=== PATIENT | male | born 1935 | race Caucasian/White ===

== ENCOUNTER 2017-09-24 12:31 | Inpatient (IN) | payer MEDICARE, OTHER ==
[2017-09-24] MEDS ORDERED: Albuterol 0.083% 2.5 MG/3 ML Neb Soln NEB PRN (12:47)
[2017-09-24] MEDS ORDERED: Furosemide 40 MG/4 ML VIAL IVPUSH ONE (13:45)
[2017-09-24] MEDS ORDERED: Potassium Chloride 20 MEQ Tab.ER PO ONE (13:45)
[2017-09-24] MEDS ORDERED: Levofloxacin/Dextrose 5%-Water 100 ML IV SCH (14:00)
[2017-09-24] MEDS ORDERED: Acetaminophen 500 MG Tab PO PRN (14:05)
[2017-09-24] MEDS: Sodium Chloride 0.9% 100 ML IV SCH (14:10)
[2017-09-24] MEDS: cefTRIAXone 1 GM Vial IVPUSH SCH (14:20)
[2017-09-24] MEDS ORDERED: Levofloxacin/Dextrose 5%-Water 50 ML IV SCH (15:00)
[2017-09-24] MEDS ORDERED: Warfarin 2.5 MG Tab PO SCH (18:00)
[2017-09-24] MEDS: Fluticasone Propionate Nasal Spray 16 GM Bottle NASBOTH SCH (21:04)
[2017-09-24] MEDS: ClonazePAM 0.5 MG Tab PO SCH (21:04)
[2017-09-24] MEDS: Levothyroxine 50 MCG Tab PO SCH (21:06)
[2017-09-25] MEDS: Losartan 25 MG Tab PO SCH (08:56)
[2017-09-25] MEDS: Metoprolol Succinate 50 MG Tab.ER PO SCH (08:56)
[2017-09-25] MEDS: Fluticasone Propionate Nasal Spray 16 GM Bottle NASBOTH SCH ×2 (08:57→21:04)
[2017-09-25] MEDS ORDERED: Furosemide 40 MG/4 ML VIAL IVPUSH ONE (11:05)
[2017-09-25] MEDS: Azithromycin 500 MG in Sodium Chloride 0.9% 250 ML IV SCH (11:44)
[2017-09-25] MEDS: Pantoprazole 40 MG Vial IVPUSH SCH (11:46)
[2017-09-25] MEDS: predniSONE 10 MG Tab PO SCH (13:01)
--- NOTE | 2017-09-25 13:15 | PN ---
09/25/2017 PATIENT NAME: KATHRINE BELL CHIEF COMPLAINT: Does feel overall better. White count is decreasing. No sputum production. BRIEF HISTORY: This patient was admitted by Stacy Augustin, Nurse Practitioner, yesterday due to bilateral lower lobe pneumonia. The patient failed outpatient treatment. He was seen and evaluated yesterday. Complains of "feeling miserable". He had woke up early in the morning around 2:30 with body aches, chills, headaches, and shortness of breath. The patient does report pneumonia approximately four or five years ago. The patient also reports history of pleural effusions with status post thoracentesis at one time. He was admitted for IV antibiotics for pneumonia. PHYSICAL EXAM: VITAL SIGNS: Blood pressure 134/87, heart rate 80, irregular, temperature 97.8, respiratory rate 18, O2 sats 95%, this is room air. The patient's weight is 194.5 pounds. GENERAL: The patient is alert and oriented. LUNGS: He does have some mild rhonchi in lower bases, however diaphragmatic excursion normal. CV: Irregular rhythm, however, rate controlled at 80. No S3. PMI midclavicular line, 2nd or 3rd intercostal space. GI/: Nontender. Good bowel tones. EXTREMITIES: Lower extremity slightly erythematous; 2 to 3+ edema of the right great toe. Good distal pulses. LABS: Yesterday, white count 25,000; this morning, 11.6, neutrophilia 80%. INR 2.4. Sodium and potassium normal. Creatinine 1.48, BUN 22, calcium 8.9, hemoglobin 16.2, hematocrit 49.1. BNP in [facility] 170, slightly elevated. IMPRESSION/PLAN: 1. Bilateral lower lobe pneumonia, likely streptococcal. Discontinue levofloxacin. Add azithromycin. Continue with ceftriaxone. We will see if we can get sputum culture, assess pneumococcal status. Incentive spirometer. Good pulmonary toileting. DuoNebs. 2. Inflammatory gout. We will add tapered dose of prednisone likely to benefit for pneumonia, however, was given loop diuretic yesterday. 3. Atrial fibrillation, chronic. CHADVAS2 score high on anticoagulation. INR therapeutic. Rate control with beta-sisi. 4. Heart failure, minimally clinical presentation at this time. BNP slightly elevated at 170, although does have gouty arthropathy, likely could benefit from 20 mg of Lasix today. Chest x-ray, independently read, does have some vascular congestion, slightly fluid overload picture. Daily weights. ARB ongoing. Mean arterial pressure adequate. The patient is warm, pink, and perfusing. Adequate urinary output. 5. Chronic kidney disease. BUN 22, creatinine 1.48, adequate output, likely not a candidate for NSAIDs for gout. We will give low-dose tapering of prednisone. Eventually, likely will benefit from renal dose allopurinol at some point after acute flare up. 6. GI stress prophylaxis. PPI therapy (GERD history). Other chronic medical conditions include 1. Hypertension. 2. Hiatal hernia. 3. RLS. All stable. DISPOSITION/OVERALL PLAN: The patient likely could benefit from another 24-to- 48 hours inpatient stay. Discontinue levofloxacin. Add azithromycin. Assess labs in the a.m. Incentive spirometer, pulmonary toileting, prednisone for gout, PPI therapy. /[id number]/MODL
[2017-09-25] MEDS: cefTRIAXone 1 GM Vial IVPUSH SCH (14:51)
[2017-09-25] MEDS: Sodium Chloride 0.9% 100 ML IV SCH (14:54)
[2017-09-25] MEDS ORDERED: Warfarin 5 MG Tab PO SCH (18:00)
[2017-09-25] MEDS: Sodium Chloride 0.9% 5 ML Syringe FLUSH PRN (21:04)
[2017-09-25] MEDS: Levothyroxine 50 MCG Tab PO SCH (21:04)
[2017-09-25] MEDS: ClonazePAM 0.5 MG Tab PO SCH (21:04)
[2017-09-26] MEDS: predniSONE 10 MG Tab PO SCH (08:07)
[2017-09-26] MEDS: Losartan 25 MG Tab PO SCH (08:07)
[2017-09-26] MEDS: Fluticasone Propionate Nasal Spray 16 GM Bottle NASBOTH SCH (08:07)
[2017-09-26] MEDS: Metoprolol Succinate 50 MG Tab.ER PO SCH (08:09)
[2017-09-26] MEDS: Pantoprazole 40 MG Vial IVPUSH SCH (08:09)
[2017-09-26] MEDS: Sodium Chloride 0.9% 5 ML Syringe FLUSH PRN ×3 (08:09→13:24)
[2017-09-26 08:14] VITALS: BP 116/85
[2017-09-26] MEDS: Azithromycin 500 MG in Sodium Chloride 0.9% 250 ML IV SCH (10:56)
[2017-09-26] MEDS: cefTRIAXone 1 GM Vial IVPUSH SCH (13:24)
--- NOTE | 2017-09-28 13:41 | DISCH ---
FINAL DIAGNOSES: 1. Bilateral lower lobe pneumonia, clinically improving. 2. Inflammatory gout, improving. 3. Atrial fibrillation, chronic. CHADS2-VASc score high, on anticoagulation. INR therapeutic, rate controlled with beta sisi. 4. Heart failure with minimal clinical presentation. 5. Chronic kidney disease. 6. Rule out Alzheimer's. HISTORY: This patient was initially admitted to the [facility]. He was seen previous day in the [facility]. The patient failed outpatient treatment, was treated for pneumonia with azithromycin. The patient was complaining of feeling quite miserable. 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 He does report a history of pneumonia 4 or 5 years ago, at that time status post thoracentesis. He was admitted mainly for outpatient treatment failure for IV antibiotics and ongoing monitoring. HOSPITAL COURSE: Hospital course went well. He did have a significant white count prior to admission at 25,000 with high neutrophilia, however, with ongoing antibiotics, it did respond to 11.6, neutrophilia 80%. Upon admission, he was given Levaquin and ceftriaxone. I discontinued Levaquin and added azithromycin. The patient responded well. He did have inflammatory gout in his right great toe. Had an elevated uric acid level on admission. NSAIDs were held. He was treated over a tapering dose of steroids. He responded favorably. He did remain in atrial fibrillation without any hemodynamic compromise. His white count did elevate slightly with prednisone and with discharge at 14.3 thousand, neutrophilia was 90%. However, clinically he responded well to antibiotics. INR on discharge was 2.1. Sodium and potassium normal. BUN 25 and creatinine 1.34, decreasing. MICROBIOLOGY REPORT: Pending blood cultures on discharge. PHYSICAL EXAMINATION: VITAL SIGNS: On discharge, blood pressure 116/85, O2 saturation 95% on room air, respiratory rate 18. GENERAL: On discharge, the patient was alert and oriented, however, some memory deficit apparent, however slightly. LUNGS: Clear to auscultation. CV: Irregular rate. History of atrial fibrillation. He was using his incentive spirometer up to 2300 mL. Good pulmonary excursion. No sputum collection was able to be obtained. MEDICATION ADJUSTMENTS ON DISCHARGE: Short course of tapered prednisone for gout. He can continue with azithromycin on discharge. Discontinue Levaquin and ceftriaxone. He can continue on all his other home meds. He is to continue with coughing and deep breathing exercises. Report fevers or any shortness of breath or mucus production. He will follow up with Stacy Augustin at [facility] outpatient. RECOMMENDATIONS AT FOLLOWUP: Consider neuropsychological testing for possible Alzheimer's dementia. /[id number]/MODL MTDD
== END 2017-09-26 14:45 | disposition home or self-care (01) | DRG 194 ==
LOC: KA.MS 13:29
PROVIDERS: ADMIT Nurse Practitioner Family; ATTEND Nurse Practitioner Family
DX: J18.9 Pneumonia, unspecified organism (principal); I13.0 Hypertensive heart and chronic kidney disease with heart failure and stage 1 through stage 4 chronic kidney disease, or unspecified chronic kidney disease; M10.9 Gout, unspecified; I48.2 Chronic atrial fibrillation; I50.9 Heart failure, unspecified; N18.9 Chronic kidney disease, unspecified; B95.5 Unspecified streptococcus as the cause of diseases classified elsewhere; K44.9 Diaphragmatic hernia without obstruction or gangrene; G25.81 Restless legs syndrome; G30.9 Alzheimer's disease, unspecified; F02.80 Dementia in other diseases classified elsewhere, unspecified severity, without behavioral disturbance, psychotic disturbance, mood disturbance, and anxiety
CPT/HCPCS: 36415; 80048; 84550; 85025; 85610; A9270-GY; C9113; J0456; J0696; J1940; J1956; J7050

== ENCOUNTER 2017-10-06 11:08 | Inpatient (IN) | payer MEDICARE, OTHER ==
[2017-10-06] MEDS ORDERED: Sodium Chloride 0.9% 5 ML Syringe FLUSH PRN (11:18)
--- NOTE | 2017-10-06 11:31 | EDM.PDOC ---
ED HPI GENERAL MEDICAL PROBLEM - General Chief Complaint: Cardiovascular Problem Stated Complaint: SHORTNESS OF BREATH Time Seen by Provider: 10/06/17 11:18 Source of Information: Reports: Patient History Limitations: Reports: No Limitations - History of Present Illness INITIAL COMMENTS - FREE TEXT/NARRATIVE: Patient is an 82-year-old gentleman who presents to the emergency department via EMS secondary to atrial fibrillation and shortness of breath. Patient was seen at [facility] in [place] for follow-up. Status post pneumonia admission and was found to continue being short of breath. Discussed case with Tiffani from [facility], and she initiated transfer to ER. Patient states that he was feeling well 2 days ago, but yesterday developed some shortness of breath and feeling of increased heart rate. Symptoms worsened about 4 o'clock this morning, so he presented to [facility] today. Patient denies chest pain, fever, nausea, vomiting, abdominal pain, peripheral edema, headache, vision changes, or any change in medication. Onset: Gradual Duration: Day(s): Improves with: Reports: None Worsens with: Reports: None Associated Symptoms: Reports: Shortness of Breath - Related Data Allergies Allergy/AdvReac Type Severity Reaction Status Date / Time SANJAY Inhibitors Allergy THROAT Verified 10/06/17 11:32 TICKLES lisinopril Allergy UNKNOWN Verified 10/06/17 11:32 Home Meds: Home Meds Acetaminophen [Acetaminophen Extra Strength] 1,000 mg PO ASDIRECTED PRN [History] Albuterol Sulfate [Albuterol Sulfate HFA] 1 puff INH Q4H PRN 05/23/14 [History] ClonazePAM [KlonoPIN] 0.5 mg PO BEDTIME 05/23/14 [History] Levothyroxine [Synthroid] 50 mcg PO BEDTIME 05/23/14 [History] Losartan [Cozaar] 25 mg PO DAILY 05/23/14 [History] Warfarin [Coumadin] 5 mg PO SUTUWETHSA@2100 05/23/14 [History] Cholecalciferol (Vitamin D3) [Vitamin D3] 1,000 unit PO Q48H 09/24/17 [History] Ipratropium [Atrovent 0.03% Nasal [place]] 2 spray NASBOTH TID 09/24/17 [History] Mecobalamin [B-12] 1,000 mcg SL Q48H 09/24/17 [History] Metoprolol Succinate 50 mg PO DAILY 09/24/17 [History] Warfarin [Coumadin] 2.5 mg PO MOFR@2100 09/24/17 [History] Past Medical History HEENT History: Reports: Cataract Cardiovascular History: Reports: Heart Failure, Hypertension Respiratory History: Reports: Pneumonia, Recurrent, Sleep Apnea, SOB Gastrointestinal History: Reports: Chronic Diarrhea Other Gastrointestinal History: gluten free d/t IBS Musculoskeletal History: Reports: Arthritis Neurological History: Reports: Headaches, Chronic, Head Trauma Other Neuro History: blood clots in the brain, Endocrine/Metabolic History: Reports: Hypothyroidism Hematologic History: Reports: B12 Deficiency Other Dermatologic History: shingles in feb. - Infectious Disease History Infectious Disease History: Reports: Chicken Pox, Influenza, Mumps, Shingles - Past Surgical History HEENT Surgical History: Reports: Cataract Surgery Cardiovascular Surgical History: Reports: None Respiratory Surgical History: Reports: Thoracentesis Endocrine Surgical History: Reports: Thyroidectomy Musculoskeletal Surgical History: Reports: Shoulder Surgery Social & Family History - Tobacco Use Smoking Status *Q: Never Smoker Second Hand Smoke Exposure: No - Caffeine Use Caffeine Use: Reports: Soda - Recreational Drug Use Recreational Drug Use: No - Living Situation & Occupation Living situation: Reports: Occupation: Retired ED ROS GENERAL - Review of Systems Review Of Systems: ROS reveals no pertinent complaints other than HPI. Constitutional: Reports: No Symptoms HEENT: Reports: No Symptoms Respiratory: Reports: Shortness of Breath Cardiovascular: Reports: Palpitations Endocrine: Reports: No Symptoms GI/Abdominal: Reports: No Symptoms : Reports: No Symptoms Musculoskeletal: Reports: No Symptoms Skin: Reports: No Symptoms Neurological: Reports: No Symptoms Psychiatric: Reports: No Symptoms Hematologic/Lymphatic: Reports: No Symptoms Immunologic: Reports: No Symptoms ED EXAM, GENERAL - Physical Exam Exam: See Below Exam Limited By: No Limitations General Appearance: Alert, WD/WN, No Apparent Distress Eye Exam: Bilateral Eye: Normal Inspection Nose: Normal Inspection, Normal Mucosa, No Blood Throat/Mouth: Normal Inspection, Normal Oropharynx, No Airway Compromise Head: Atraumatic, Normocephalic Neck: Normal Inspection, Supple, Non-Tender Respiratory/Chest: No Respiratory Distress, Rales (Bibasilar) Cardiovascular: No Murmur, Irregularly Irregular GI/Abdominal: Normal Bowel Sounds, Soft, Non-Tender Back Exam: Normal Inspection. No: CVA Tenderness (L), CVA Tenderness (R) Extremities: Normal Inspection, Non-Tender, No Pedal Edema Neurological: Alert, Oriented Psychiatric: Normal Affect, Normal Mood Skin Exam: Warm, Dry, Intact, Normal Color, No Rash Lymphatic: No Adenopathy EKG INTERPRETATION EKG Date: 10/06/17 Time: 11:35 Rhythm: A-Fib Rate (Beats/Min): 120 Comparison: No Change Course - Vital Signs Last Recorded V/S: Last Vital Signs Temp 99 F 10/06/17 11:28 Pulse 133 H 10/06/17 11:28 Resp 25 H 10/06/17 11:28 BP 142/102 H 10/06/17 11:28 Pulse Ox 97 10/06/17 11:46 - Orders/Labs/Meds Orders: Active Orders 24 hr Category Date Time Status EKG Documentation Completion [RC] ASDIRECTED Care 10/06/17 11:20 Active Peripheral IV Care [RC] . DIRECTED Care 10/06/17 11:20 Active CULTURE BLOOD [BC] Stat Lab 10/06/17 11:45 Received CULTURE BLOOD [BC] Stat Lab 10/06/17 12:05 Received Sodium Chloride 0.9% [Syrex Flush] Med 10/06/17 11:18 Active 5 ml FLUSH Q8HR PRN Blood Culture x2 Reflex Set [OM.PC] Stat Oth 10/06/17 11:44 Ordered Peripheral IV Insertion Adult [OM.PC] Stat Oth 10/06/17 11:18 Ordered EKG 12 Lead [EK] Stat Ther 10/06/17 11:18 Ordered Medication Orders Sodium Chloride (Syrex Flush) 5 ml FLUSH Q8HR PRN PRN Reason: Keep Vein Open Labs: Laboratory Tests 10/06/17 10/06/17 10/06/17 Range/Units 11:25 11:25 11:25 WBC 30.1 H* D (5.0-10.0) 10^3/uL RBC 5.61 (4.50-6.00) 10^6/uL Hgb 17.0 (13.0-17.0) g/dL Hct 51.3 (40.0-52.0) % MCV 91.5 (82.0-92.0) fL MCH 30.4 (27.0-31.0) pg MCHC 33.2 (32.0-36.0) g/dL RDW 13.6 (11.5-14.5) % Plt Count 178 (150-300) 10^3/uL MPV 9.0 (7.4-10.4) fL Add Manual Diff Yes Neutrophils % (Manual) 97 H (50-70) % Lymphocytes % (Manual) 2 L (20-40) % Monocytes % (Manual) 1 L (2-8) % Absolute Neutrophils 29.1970 Lymphocytes # (Manual) 0.6020 Monocytes # (Manual) 0.3010 Platelet Estimate Adequate Clumped Platelets Few RBC Morph Comment See note PT 47.3 H D (8.9-11.4) SEC INR 4.9 H* (0.9-1.1) APTT 39.3 H (20.8-31.2) SEC Sodium 145 (136-145) mmol/L Potassium 4.6 (3.3-5.3) mmol/L Chloride 108 (98-115) mmol/L Carbon Dioxide 27.0 (21.0-32.0) mmol/L BUN 17 (6-25) mg/dL Creatinine 1.23 H (0.51-1.17) mg/dL Est Cr Clr Drug Dosing 49.46 mL/min Estimated GFR (MDRD) 57 mL/min Glucose 99 (70-110) mg/dL Calcium 8.8 (8.7-10.3) mg/dL Magnesium 1.9 (1.8-2.4) mg/dL Total Bilirubin 1.2 H (0.2-1.0) mg/dL AST 36 (15-37) U/L ALT 62 (12-78) U/L Alkaline Phosphatase 80 (46-116) IU/L Troponin I < 0.04 (0.00-0.070) ng/mL B-Natriuretic Peptide 54 (0-100) pg/mL Total Protein 6.8 (6.4-8.2) g/dL Albumin 3.47 (3.00-4.80) g/dL Free T4 0.95 (0.59-1.17) ng/dL TSH, Ultra Sensitive 1.120 (0.340-4.820) uIU/mL Meds: Medications Generic Name Dose Route Start Last Admin Trade Name Freq PRN Reason Stop Dose Admin Sodium Chloride 5 ml 10/06/17 11:18 Syrex Flush FLUSH Q8HR PRN Keep Vein Open Discontinued Medications Generic Name Dose Route Start Last Admin Trade Name Kassandra PRN Reason Stop Dose Admin Ceftriaxone Sodium Confirm 10/06/17 13:10 Rocephin Administered 10/06/17 13:11 Dose 1 gm .ROUTE .STK-MED ONE Ceftriaxone Sodium 1 gm 10/06/17 13:14 Rocephin IVPUSH 10/06/17 13:15 ONETIME ONE - Radiology Interpretation Free Text/Narrative:: Chest x-ray results were performed at the [facility] showed consolidation at the right base - Re-Assessments/Exams Free Text/Narrative Re-Assessment/Exam: 10/06/17 13:48 Patient afebrile, nontoxic appearing, vital signs stable, patient remains in atrial fibrillation with heart rate between 100 and 120. Oxygen saturation at 95% on nasal cannula. Discussed case with Lele Ramirez from [facility], and patient will be admitted inpatient and followed by him. Departure - Departure Time of Disposition: 13:56 Disposition: Admitted As Inpatient 68 Condition: Fair Clinical Impression: Atrial fibrillation Pneumonia Qualifiers: Pneumonia type: due to unspecified organism Laterality: right Lung location: lower lobe of lung Qualified Code(s): J18.1 - Lobar pneumonia, unspecified organism Referrals: Tiffani Arguello PARTY DIRECTOR [Primary Care Provider] - Forms: ED Department Discharge - My Orders Last 24 Hours: My Active Orders 10/06/17 11:18 Sodium Chloride 0.9% [Syrex Flush] 5 ml FLUSH Q8HR PRN Peripheral IV Insertion Adult [OM.PC] Stat EKG 12 Lead [EK] Stat 10/06/17 11:20 EKG Documentation Completion [RC] ASDIRECTED Peripheral IV Care [RC] . DIRECTED 10/06/17 11:44 Blood Culture x2 Reflex Set [OM.PC] Stat 10/06/17 11:45 CULTURE BLOOD [BC] Stat 10/06/17 12:05 CULTURE BLOOD [BC] Stat - Assessment/Plan Last 24 Hours: My Active Orders 10/06/17 11:18 Sodium Chloride 0.9% [Syrex Flush] 5 ml FLUSH Q8HR PRN Peripheral IV Insertion Adult [OM.PC] Stat EKG 12 Lead [EK] Stat 10/06/17 11:20 EKG Documentation Completion [RC] ASDIRECTED Peripheral IV Care [RC] . DIRECTED 10/06/17 11:44 Blood Culture x2 Reflex Set [OM.PC] Stat 10/06/17 11:45 CULTURE BLOOD [BC] Stat 10/06/17 12:05 CULTURE BLOOD [BC] Stat
[2017-10-06 12:52] LABS: CHLORIDE,CL 108 mmol/L (98-115); SODIUM,NA 145 mmol/L (136-145)
[2017-10-06] MEDS ORDERED: cefTRIAXone 1 GM Vial ONE (13:10)
[2017-10-06] MEDS ORDERED: cefTRIAXone 1 GM Vial IVPUSH ONE (13:14)
[2017-10-06] MEDS ORDERED: Albuterol 0.083% 2.5 MG/3 ML Neb Soln NEB PRN (14:57)
[2017-10-06] MEDS ORDERED: Sodium Chloride 0.9% 1,000 ML IV SCH (17:15)
[2017-10-06] MEDS: predniSONE 10 MG Tab PO SCH (18:20)
[2017-10-06] MEDS: Azithromycin 500 MG in Sodium Chloride 0.9% 250 ML IV SCH (18:23)
[2017-10-06] MEDS ORDERED: Albuterol HFA 18 Gm Inhaler INH PRN (18:42)
[2017-10-06] MEDS ORDERED: Acetaminophen 500 MG Tab PO PRN ×2 (18:42→19:11)
[2017-10-06] MEDS ORDERED: MECOBALAMIN 1000 MCG SL SCH (18:45)
[2017-10-06] MEDS: Piperacillin/Tazobactam/Dext 3.375 GM in Premix Bag 1 BAG IV SCH (19:50)
[2017-10-06] MEDS: Levothyroxine 50 MCG Tab PO SCH (20:25)
[2017-10-06] MEDS: ClonazePAM 0.5 MG Tab PO SCH (20:25)
[2017-10-06] MEDS ORDERED: IPRATROPIUM NASBOTH SCH (21:00)
[2017-10-06] MEDS ORDERED: Sodium Chloride 0.9% 250 ML IV SCH (21:30)
[2017-10-07] MEDS: Piperacillin/Tazobactam/Dext 3.375 GM in Premix Bag 1 BAG IV SCH ×4 (00:58→19:28)
[2017-10-07] MEDS: Metoprolol Succinate 50 MG Tab.ER PO SCH (09:29)
[2017-10-07] MEDS: predniSONE 20 MG Tab PO SCH (09:32)
--- NOTE | 2017-10-07 10:19 | PCM.HP ---
H&P History of Present Illness - General Date of Service: 10/07/17 Admit Problem/Dx: Admission Diagnosis/Problem Admission Diagnosis/Problem Pneumonia - History of Present Illness Initial Comments - Free Text/Narative: This 82-year-old gentleman yesterday was admitted through the ED due to atrial fibrillation and shortness of breath. He was initially evaluated at an [facility] however due to limited availability for diagnostics patient was sent to ED for further evaluation and workup. Patient states that he was feeling well 2 days ago, but then started developing up shortness of breath and feeling of increased heart rate. Symptoms worsened about 4 o'clock morning of admission--prompting outpatient appointment. On admission in the ED he denied any chest pain, fever, nausea, vomiting, abdominal pain, peripheral edema, headache, vision changes, or any change in medication. Proximally 2 weeks ago patient was discharged from hospital with bilateral lower lobe pneumonia and a subsequent follow-up from hospitalization he was doing very well without any symptoms. - Related Data Allergies/Adverse Reactions: Allergies Allergy/AdvReac Type Severity Reaction Status Date / Time SANJAY Inhibitors Allergy THROAT Verified 10/06/17 11:32 TICKLES lisinopril Allergy UNKNOWN Verified 10/06/17 11:32 Home Medications: Home Meds Acetaminophen [Acetaminophen Extra Strength] 1,000 mg PO ASDIRECTED PRN [History] Albuterol Sulfate [Albuterol Sulfate HFA] 1 puff INH Q4H PRN 05/23/14 [History] ClonazePAM [KlonoPIN] 0.5 mg PO BEDTIME 05/23/14 [History] Levothyroxine [Synthroid] 50 mcg PO BEDTIME 05/23/14 [History] Losartan [Cozaar] 25 mg PO DAILY 05/23/14 [History] Warfarin [Coumadin] 5 mg PO SUTUWETHSA@2100 05/23/14 [History] Cholecalciferol (Vitamin D3) [Vitamin D3] 1,000 unit PO Q48H 09/24/17 [History] Ipratropium [Atrovent 0.03% Nasal [place]] 2 spray NASBOTH TID 09/24/17 [History] Mecobalamin [B-12] 1,000 mcg SL Q48H 09/24/17 [History] Metoprolol Succinate 50 mg PO DAILY 09/24/17 [History] Warfarin [Coumadin] 2.5 mg PO MOFR@2100 09/24/17 [History] Amoxicillin/Clavulanate K [Augmentin 875-125 MG] 1 tab PO BID 5 Days #10 tablet 10/10/17 [Rx] Prednisone [IJD: predniSONE] 20 mg PO DAILY 2 Days #2 tablet 10/10/17 [Rx] guaiFENesin [Mucinex] 600 mg PO BID #10 tab.er 10/10/17 [Rx] Past Medical History HEENT History: Reports: Cataract Cardiovascular History: Reports: Afib, Heart Failure, Hypertension Respiratory History: Reports: Pneumonia, Recurrent, Sleep Apnea, SOB Gastrointestinal History: Reports: Chronic Diarrhea Other Gastrointestinal History: gluten free d/t IBS Genitourinary History: Reports: Renal Calculus Musculoskeletal History: Reports: Arthritis, Gout Neurological History: Reports: Headaches, Chronic, Head Trauma Other Neuro History: blood clots in the brain, Endocrine/Metabolic History: Reports: Hypothyroidism Hematologic History: Reports: B12 Deficiency Other Dermatologic History: shingles in feb. - Infectious Disease History Infectious Disease History: Reports: Chicken Pox, Influenza, Mumps, Shingles - Past Surgical History HEENT Surgical History: Reports: Cataract Surgery Cardiovascular Surgical History: Reports: None Respiratory Surgical History: Reports: Thoracentesis GI Surgical History: Reports: Cholecystectomy, Colonoscopy Male Surgical History: Reports: Circumcision, Renal Calculus Endocrine Surgical History: Reports: Thyroidectomy Musculoskeletal Surgical History: Reports: Shoulder Surgery Social & Family History - Family History HEENT: Reports: None Cardiac: Reports: None Respiratory: Reports: None GI: Reports: None : Reports: Diabetic Nephropathy Musculoskeletal: Reports: Back pain, Chronic Neurological: Reports: None Psychiatric: Reports: None Endocrine/Metabolic: Reports: Diabetes, type II Hematologic: Reports: None Immunologic: Reports: None Dermatologic: Reports: None Oncologic: Reports: None - Tobacco Use Smoking Status *Q: Never Smoker Second Hand Smoke Exposure: No - Caffeine Use Caffeine Use: Reports: Soda - Recreational Drug Use Recreational Drug Use: No - Living Situation & Occupation Living situation: Reports: Occupation: Retired H&P Review of Systems - Review of Systems: Review Of Systems: See Below General: Reports: No Symptoms HEENT: Reports: No Symptoms Pulmonary: Denies: Shortness of Breath, Wheezing, Pleuritic Chest Pain, Cough, Sputum Cardiovascular: Reports: Blood Pressure Problem. Denies: Chest Pain, Palpitations, Orthopnea, Edema Gastrointestinal: Reports: No Symptoms Genitourinary: Reports: No Symptoms Musculoskeletal: Reports: No Symptoms Skin: Reports: No Symptoms Psychiatric: Denies: Confusion Neurological: Denies: Confusion, Dizziness Hematologic/Lymphatic: Reports: No Symptoms Immunologic: Reports: No Symptoms Exam - Exam Exam: See Below - Vital Signs Vital Signs: Last Vital Signs Temp 97 F 10/07/17 06:36 Pulse 92 10/07/17 09:29 Resp 20 10/07/17 08:01 BP 127/82 10/07/17 09:29 Pulse Ox 97 10/07/17 08:01 Weight: 200 lb 1.6 oz - Exam Quality Assessment: Supplemental Oxygen, DVT Prophylaxis (On Coumadin for A. fib ) General: Alert, Oriented, Cooperative. No: Mild Distress HEENT: Conjunctiva Clear, Mucosa Moist & [place]: Supple. No: JVD Lungs: No: Decreased Breath Sounds, Crackles, Rhonchi, Wheezing Cardiovascular: Irregular Rhythm. No: Tachycardia GI/Abdominal Exam: Soft (Male) Exam: Deferred Rectal (Males) Exam: Deferred Back Exam: No: CVA Tenderness (L) Extremities: No Pedal Edema, Normal Capillary Refill. No: Pedal Edema Neurological: Cranial Nerves Intact Neuro Extensive - Mental Status: Alert, Oriented x3, Memory Intact Neuro Extensive - Motor, Sensory, Reflexes: CN II-XII Intact Psychiatric: Alert, Normal Affect, Normal Mood - Patient Data Lab Results Last 24 hrs: Laboratory Results - last 24 hr 10/06/17 10/06/17 10/06/17 Range/Units 11:25 11:25 11:25 WBC 30.1 H* D (5.0-10.0) 10^3/uL RBC 5.61 (4.50-6.00) 10^6/uL Hgb 17.0 (13.0-17.0) g/dL Hct 51.3 (40.0-52.0) % MCV 91.5 (82.0-92.0) fL MCH 30.4 (27.0-31.0) pg MCHC 33.2 (32.0-36.0) g/dL RDW 13.6 (11.5-14.5) % Plt Count 178 (150-300) 10^3/uL MPV 9.0 (7.4-10.4) fL Neut % (Auto) (50.0-70.0) % Lymph % (Auto) (20.0-40.0) % [place] % (Auto) (2.0-8.0) % Eos % (Auto) (1.0-3.0) % Baso % (Auto) (0.0-1.0) % Neut # (Auto) (2.5-7.0) 10^3/uL Lymph # (Auto) (1.0-4.0) 10^3/uL [place] # (Auto) (0.1-0.8) 10^3/uL Eos # (Auto) (0.1-0.3) 10^3/uL Baso # (Auto) (0.0-0.1) 10^3/uL Add Manual Diff Yes Neutrophils % (Manual) 97 H (50-70) % Lymphocytes % (Manual) 2 L (20-40) % Monocytes % (Manual) 1 L (2-8) % Absolute Neutrophils 29.1970 Lymphocytes # (Manual) 0.6020 Monocytes # (Manual) 0.3010 Platelet Estimate Adequate Clumped Platelets Few RBC Morph Comment See note PT 47.3 H D (8.9-11.4) SEC INR 4.9 H* (0.9-1.1) APTT 39.3 H (20.8-31.2) SEC Sodium 145 (136-145) mmol/L Potassium 4.6 (3.3-5.3) mmol/L Chloride 108 (98-115) mmol/L Carbon Dioxide 27.0 (21.0-32.0) mmol/L BUN 17 (6-25) mg/dL Creatinine 1.23 H (0.51-1.17) mg/dL Est Cr Clr Drug Dosing 49.46 mL/min Estimated GFR (MDRD) 57 mL/min Glucose 99 (70-110) mg/dL Lactic Acid (0.4-2.0) mmol/L Calcium 8.8 (8.7-10.3) mg/dL Magnesium 1.9 (1.8-2.4) mg/dL Total Bilirubin 1.2 H (0.2-1.0) mg/dL AST 36 (15-37) U/L ALT 62 (12-78) U/L Alkaline Phosphatase 80 (46-116) IU/L Troponin I < 0.04 (0.00-0.070) ng/mL C-Reactive Protein (0.0-0.9) mg/dL B-Natriuretic Peptide 54 (0-100) pg/mL Total Protein 6.8 (6.4-8.2) g/dL Albumin 3.47 (3.00-4.80) g/dL Free T4 0.95 (0.59-1.17) ng/dL TSH, Ultra Sensitive 1.120 (0.340-4.820) uIU/mL Specimen Type Urine Color (YELLOW) Urine Appearance (CLEAR) Urine pH (5.0-9.0) Ur Specific [place] (1.005-1.030) Urine Protein (NEGATIVE) mg/dL Urine Glucose (UA) (NEGATIVE) mg/dL Urine Ketones (NEGATIVE) mg/dL Urine Occult Blood (NEGATIVE) Urine Nitrite (NEGATIVE) Urine Bilirubin (NEGATIVE) Urine Urobilinogen (0.2-1.0) E.U./dL Ur Leukocyte Esterase (NEGATIVE) Urine RBC /HPF Urine WBC /HPF Ur Epithelial Cells /LPF Urine Bacteria (NONE TO FEW) /HPF 10/06/17 10/06/17 10/06/17 Range/Units 11:30 13:30 15:20 WBC (5.0-10.0) 10^3/uL RBC (4.50-6.00) 10^6/uL Hgb (13.0-17.0) g/dL Hct (40.0-52.0) % MCV (82.0-92.0) fL MCH (27.0-31.0) pg MCHC (32.0-36.0) g/dL RDW (11.5-14.5) % Plt Count (150-300) 10^3/uL MPV (7.4-10.4) fL Neut % (Auto) (50.0-70.0) % Lymph % (Auto) (20.0-40.0) % [place] % (Auto) (2.0-8.0) % Eos % (Auto) (1.0-3.0) % Baso % (Auto) (0.0-1.0) % Neut # (Auto) (2.5-7.0) 10^3/uL Lymph # (Auto) (1.0-4.0) 10^3/uL [place] # (Auto) (0.1-0.8) 10^3/uL Eos # (Auto) (0.1-0.3) 10^3/uL Baso # (Auto) (0.0-0.1) 10^3/uL Add Manual Diff Neutrophils % (Manual) (50-70) % Lymphocytes % (Manual) (20-40) % Monocytes % (Manual) (2-8) % Absolute Neutrophils Lymphocytes # (Manual) Monocytes # (Manual) Platelet Estimate Clumped Platelets RBC Morph Comment PT (8.9-11.4) SEC INR (0.9-1.1) APTT (20.8-31.2) SEC Sodium (136-145) mmol/L Potassium (3.3-5.3) mmol/L Chloride (98-115) mmol/L Carbon Dioxide (21.0-32.0) mmol/L BUN (6-25) mg/dL Creatinine (0.51-1.17) mg/dL Est Cr Clr Drug Dosing mL/min Estimated GFR (MDRD) mL/min Glucose (70-110) mg/dL Lactic Acid 3.3 H (0.4-2.0) mmol/L Calcium (8.7-10.3) mg/dL Magnesium (1.8-2.4) mg/dL Total Bilirubin (0.2-1.0) mg/dL AST (15-37) U/L ALT (12-78) U/L Alkaline Phosphatase (46-116) IU/L Troponin I (0.00-0.070) ng/mL C-Reactive Protein 2.0 H (0.0-0.9) mg/dL B-Natriuretic Peptide (0-100) pg/mL Total Protein (6.4-8.2) g/dL Albumin (3.00-4.80) g/dL Free T4 (0.59-1.17) ng/dL TSH, Ultra Sensitive (0.340-4.820) uIU/mL Specimen Type Urinvoid Urine Color Yellow (YELLOW) Urine Appearance Clear (CLEAR) Urine pH 5.0 (5.0-9.0) Ur Specific [place] 1.020 (1.005-1.030) Urine Protein Negative (NEGATIVE) mg/dL Urine Glucose (UA) Negative (NEGATIVE) mg/dL Urine Ketones Negative (NEGATIVE) mg/dL Urine Occult Blood Trace-intact H (NEGATIVE) Urine Nitrite Negative (NEGATIVE) Urine Bilirubin Negative (NEGATIVE) Urine Urobilinogen 0.2 (0.2-1.0) E.U./dL Ur Leukocyte Esterase Negative (NEGATIVE) Urine RBC 0-5 /HPF Urine WBC 0-5 /HPF Ur Epithelial Cells Few /LPF Urine Bacteria Few (NONE TO FEW) /HPF 10/07/17 10/07/17 10/07/17 Range/Units 07:25 07:25 07:25 WBC 24.3 H (5.0-10.0) 10^3/uL RBC 4.99 (4.50-6.00) 10^6/uL Hgb 15.2 D (13.0-17.0) g/dL Hct 46.7 (40.0-52.0) % MCV 93.6 H (82.0-92.0) fL MCH 30.4 (27.0-31.0) pg MCHC 32.5 (32.0-36.0) g/dL RDW 13.9 (11.5-14.5) % Plt Count 187 (150-300) 10^3/uL MPV 8.7 (7.4-10.4) fL Neut % (Auto) 97.5 H (50.0-70.0) % Lymph % (Auto) 2.0 L (20.0-40.0) % [place] % (Auto) 0.5 L (2.0-8.0) % Eos % (Auto) 0.0 L (1.0-3.0) % Baso % (Auto) 0.0 (0.0-1.0) % Neut # (Auto) 23.7 H (2.5-7.0) 10^3/uL Lymph # (Auto) 0.5 L (1.0-4.0) 10^3/uL [place] # (Auto) 0.1 (0.1-0.8) 10^3/uL Eos # (Auto) 0.0 L (0.1-0.3) 10^3/uL Baso # (Auto) 0.0 (0.0-0.1) 10^3/uL Add Manual Diff Neutrophils % (Manual) (50-70) % Lymphocytes % (Manual) (20-40) % Monocytes % (Manual) (2-8) % Absolute Neutrophils Lymphocytes # (Manual) Monocytes # (Manual) Platelet Estimate Clumped Platelets RBC Morph Comment PT 28.3 H D (8.9-11.4) SEC INR 2.9 H (0.9-1.1) APTT (20.8-31.2) SEC Sodium 149 H (136-145) mmol/L Potassium 5.1 (3.3-5.3) mmol/L Chloride 109 (98-115) mmol/L Carbon Dioxide 24.9 (21.0-32.0) mmol/L BUN 22 (6-25) mg/dL Creatinine 1.29 H (0.51-1.17) mg/dL Est Cr Clr Drug Dosing 47.16 mL/min Estimated GFR (MDRD) 54 mL/min Glucose 150 H (70-110) mg/dL Lactic Acid (0.4-2.0) mmol/L Calcium 8.3 L (8.7-10.3) mg/dL Magnesium (1.8-2.4) mg/dL Total Bilirubin (0.2-1.0) mg/dL AST (15-37) U/L ALT (12-78) U/L Alkaline Phosphatase (46-116) IU/L Troponin I (0.00-0.070) ng/mL C-Reactive Protein (0.0-0.9) mg/dL B-Natriuretic Peptide (0-100) pg/mL Total Protein (6.4-8.2) g/dL Albumin (3.00-4.80) g/dL Free T4 (0.59-1.17) ng/dL TSH, Ultra Sensitive (0.340-4.820) uIU/mL Specimen Type Urine Color (YELLOW) Urine Appearance (CLEAR) Urine pH (5.0-9.0) Ur Specific [place] (1.005-1.030) Urine Protein (NEGATIVE) mg/dL Urine Glucose (UA) (NEGATIVE) mg/dL Urine Ketones (NEGATIVE) mg/dL Urine Occult Blood (NEGATIVE) Urine Nitrite (NEGATIVE) Urine Bilirubin (NEGATIVE) Urine Urobilinogen (0.2-1.0) E.U./dL Ur Leukocyte Esterase (NEGATIVE) Urine RBC /HPF Urine WBC /HPF Ur Epithelial Cells /LPF Urine Bacteria (NONE TO FEW) /HPF Result Diagrams: 10/10/17 06:45 10/10/17 06:45 Problem List Initiated/Reviewed/Updated: Yes Orders Last 24hrs: Active Orders 24 hr Category Date Time Status Patient Status [ADT] Routine ADT 10/06/17 13:54 Ordered Cardiac Monitoring [RC] 0300,0700,1100,1500,1900,2300 Care 10/06/17 13:54 Active Oxygen Therapy [RC] PRN Care 10/06/17 13:54 Active RT Aerosol Therapy [RC] ASDIRECTED Care 10/06/17 14:57 Active VTE/DVT Education [RC] PER UNIT ROUTINE Care 10/06/17 13:54 Active Vital Signs [RC] 0300,0700,1100,1500,1900,2300 Care 10/06/17 13:54 Active Gluten Free Diet [DIET] Diet 10/06/17 Dinner Active Heart Healthy Diet [DIET] Diet 10/06/17 Dinner Active CULTURE BLOOD [BC] Stat Lab 10/06/17 11:45 Received CULTURE BLOOD [BC] Stat Lab 10/06/17 12:05 Received CULTURE SPUTUM + SMEAR [RM] Routine Lab 10/06/17 14:49 Ordered VANCOMYCIN TROUGH [CHEM] Routine Lab 10/08/17 19:30 Ordered Acetaminophen [Tylenol Extra Strength] Med 10/06/17 19:11 Active 1,000 mg PO Q8H PRN Albuterol [Proventil Neb Soln] Med 10/06/17 14:57 Active 2.5 mg NEB Q4HRRT PRN Albuterol [Ventolin HFA] Med 10/06/17 18:42 Active 0 gm INH Q4H PRN Azithromycin [Zithromax] 500 mg Med 10/06/17 18:00 Active Sodium Chloride 0.9% [Normal Saline] 250 ml IV Q24H ClonazePAM [KlonoPIN] Med 10/06/17 21:00 Active 0.5 mg PO BEDTIME Levothyroxine [Synthroid] Med 10/06/17 21:00 Active 50 mcg PO BEDTIME Metoprolol Succinate [Toprol XL] Med 10/07/17 09:00 Active 50 mg PO DAILY Piperacillin/Tazobactam/Dext [Zosyn in Dextrose Iso- Med 10/06/17 19:00 Active Osmotic 3.375 GM] 3.375 gm Premix Bag 1 bag IV Q6H Sodium Chloride 0.9% [Normal Saline] 1,000 ml Med 10/06/17 17:15 Active IV ASDIRECTED Sodium Chloride 0.9% [Normal Saline] 250 ml Med 10/06/17 21:30 Active IV ASDIRECTED Sodium Chloride 0.9% [Syrex Flush] Med 10/06/17 11:18 Active 5 ml FLUSH Q8HR PRN Vancomycin 1 gm Med 10/06/17 20:00 Active Sodium Chloride 0.9% [Normal Saline] 250 ml IV Q12H Vancomycin Pharmacy to Dose [Pharmacy to Dose - Med 10/06/17 15:00 Pending Vancomycin] 1 dose .XX ASDIRECTED predniSONE Med 10/07/17 09:28 Active 60 mg PO DAILY Blood Culture x2 Reflex Set [OM.PC] Stat Oth 10/06/17 11:44 Ordered Peripheral IV Insertion Adult [OM.PC] Stat Oth 10/06/17 11:18 Ordered Resuscitation Status Routine Resus Stat 10/06/17 13:54 Ordered EKG 12 Lead [EK] Stat Ther 10/06/17 11:18 Ordered Medication Orders Acetaminophen (Tylenol Extra Strength) 1,000 mg PO Q8H PRN PRN Reason: Pain Albuterol (Proventil Neb Soln) 2.5 mg NEB Q4HRRT PRN PRN Reason: Shortness of Breath Albuterol (Ventolin Hfa) 0 gm INH Q4H PRN PRN Reason: Shortness of Breath Clonazepam (Klonopin) 0.5 mg PO BEDTIME [facility] Last Admin: 10/06/17 20:25 Dose: 0.5 mg Vancomycin HCl 1 gm/ Sodium (Chloride) 270 mls @ 162 mls/hr IV Q12H NELA Last Admin: 10/07/17 07:52 Dose: 162 mls/hr Admin: 10/06/17 20:26 Dose: 162 mls/hr Sodium Chloride (Normal Saline) 1,000 mls @ 70 mls/hr IV ASDIRECTED NELA Last Admin: 10/06/17 18:23 Dose: 70 mls/hr Azithromycin 500 mg/ Sodium (Chloride) 250 mls @ 250 mls/hr IV Q24H [facility] Last Admin: 10/06/17 18:23 Dose: 250 mls/hr Piperacillin/Tazobactam/ (Dextrose 3.375 gm/ Premix) 50 mls @ 100 mls/hr IV Q6H [facility] Last Admin: 10/07/17 06:18 Dose: 100 mls/hr Infusion: 10/07/17 01:28 Dose: 100 mls/hr Admin: 10/07/17 00:58 Dose: 100 mls/hr Infusion: 10/06/17 20:20 Dose: 100 mls/hr Admin: 10/06/17 19:50 Dose: 100 mls/hr Sodium Chloride (Normal Saline) 250 mls @ 250 mls/hr IV ASDIRECTED [facility] Levothyroxine Sodium (Synthroid) 50 mcg PO BEDTIME [facility] Last Admin: 10/06/17 20:25 Dose: 50 mcg Metoprolol Succinate (Toprol Xl) 50 mg PO DAILY [facility] Last Admin: 10/07/17 09:29 Dose: 50 mg Prednisone (Prednisone) 60 mg PO DAILY [facility] Stop: 10/08/17 23:59 Last Admin: 10/07/17 09:32 Dose: 60 mg Sodium Chloride (Syrex Flush) 5 ml FLUSH Q8HR PRN PRN Reason: Keep Vein Open Vancomycin HCl (Pharmacy To Dose - Vancomycin) 1 dose .XX ASDIRECTED [facility] Assessment/Plan Comment:: HISTORY OF PRESENT ILLNESS This 82-year-old gentleman yesterday was admitted through the ED due to atrial fibrillation and shortness of breath. He was initially evaluated at an outlying [facility] however due to limited availability for diagnostics patient was sent to ED for further evaluation and workup. Patient states that he was feeling well 2 days ago, but then started developing up shortness of breath and feeling of increased heart rate. Symptoms worsened about 4 o'clock morning of admission--prompting outpatient appointment. On admission in the ED he denied any chest pain, fever, nausea, vomiting, abdominal pain, peripheral edema, headache, vision changes, or any change in medication. Proximally 2 weeks ago patient was discharged from hospital with bilateral lower lobe pneumonia and a subsequent follow-up from hospitalization he was doing very well without any symptoms. Pertinent ED findings White count 30,000 neutrophilia Hypercoagulable state Chest x-ray [facility], New consolidation right base, inflammatory pneumonitis, No significant pleural fluid or evidence of pneumothorax. No pulmonary venous distention. Update since arrival to the floor; Upon arrival to the floor patient required significant ongoing assessment and intervention due to signs and symptoms of sepsis with hypotension requiring aggressive fluid resuscitation medication changes and lab additions Principal diagnosis Sepsis--likely due to pneumonia Pneumonia RL, POA, likely CAP, rule out atypical Hypernatremia, hypotonic Chronic problems Atrial fibrillation HLD CKD CHF Hypothyroidism RLS Recent gout flareup Long-term anticoagulant therapy CV: Hypotension due to sepsis, much improved fluid resuscitation/boluses throughout the day and evening, qSOFA yesterday 3/3, today 0/3 much improved -- MAP improved, did not require pressors. No longer tachycardia or tachypnea, blood pressure now normalized with normal MAP. No signs of end-organ failure, A. fib, [id number] high, Rate control strategy; throughout admission holding beta sisi due to sepsis, will reinstitute back tonight if continues to be hemodynamically stable. INR now normal, start back on Coumadin. BNP 54 PULMONARY: Pulmonary status has improved, longer hypoxic, requiring less oxygen , no sputum production, pox 96%, chest x-ray demonstrated new consolidation right base, no need for ABG, sputum collection. Oral prednisone, Add Mucinex. On antibiotics INFECTIOUS DISEASE: New consolidation right base, inflammatory pneumonitis, added Zosyn last night, continue with azithromycin and vancomycin. White count improving, lactic acid 3.3 yesterday. CRP 2.0. Pro-calcitonin pending. Attempt to induce sputum today. surveillance. Droplet precautions, assess immunization pneumococcal status. HEMATOLOGY: Hgb/Hct normal. FLUIDS, ELECTROLYTES, AND RENAL: I/O, intake 2982, output 2800, (bolused throughout the day due to sepsis), continue with I&O, no Summers catheter needed, change to half saline today and decrease fluids today. BNP 54. No signs of fluid overload. Creatinine 1.29. ENDOCRINE: TSH normal, continue with supplemental therapy. GI: No vomiting, taking by mouth fluids. HEALTH MAINTENANCE: DVT prophylaxis, cross covered with Coumadin. Assess pneumococcal vaccine status Overall plan, continue antibiotics, decrease IV fluids, change IV fluids, add Mucinex, can removed from telemetry status, reinitiate beta blockers tonight, blood culture surveillance, monitor for any endorgan system and ongoing sepsis
[2017-10-07] MEDS ORDERED: Nitroglycerin 0.4 MG Tab.SL SL PRN (11:29)
[2017-10-07] MEDS ORDERED: Atropine 0.1 MG/ML 10 ML Syringe IVPUSH PRN (11:29)
[2017-10-07] MEDS ORDERED: EPINEPHrine 1:10,000 1 MG/10 ML Syringe IVPUSH PRN (11:29)
[2017-10-07] MEDS ORDERED: Lidocaine 2% 100 MG/5 ML Syringe IVPUSH PRN (11:29)
[2017-10-07] MEDS: Dextrose 5%-0.45% NaCl 1,000 ML IV SCH (12:15)
[2017-10-07] MEDS: guaiFENesin 600 MG Tab.ER PO SCH ×2 (12:22→21:22)
[2017-10-07] MEDS: predniSONE 10 MG Tab PO SCH (12:24)
[2017-10-07] MEDS: Azithromycin 500 MG in Sodium Chloride 0.9% 250 ML IV SCH (18:14)
[2017-10-07] MEDS ORDERED: Warfarin 5 MG Tab PO SCH (21:00)
[2017-10-07] MEDS: ClonazePAM 0.5 MG Tab PO SCH (21:22)
[2017-10-07] MEDS: Levothyroxine 50 MCG Tab PO SCH (21:22)
[2017-10-08] MEDS: Piperacillin/Tazobactam/Dext 3.375 GM in Premix Bag 1 BAG IV SCH ×4 (00:51→19:06)
[2017-10-08] MEDS: predniSONE 20 MG Tab PO SCH ×3 (08:17→11:49)
[2017-10-08] MEDS: Metoprolol Succinate 50 MG Tab.ER PO SCH (08:17)
[2017-10-08] MEDS: guaiFENesin 600 MG Tab.ER PO SCH ×2 (08:18→20:54)
[2017-10-08] MEDS ORDERED: predniSONE 10 MG Tab PO SCH (10:00)
--- NOTE | 2017-10-08 10:45 | PCM.PN ---
- General Info Date of Service: 10/08/17 Admission Dx/Problem (Free Text): Admission Diagnosis/Problem Admission Diagnosis/Problem Pneumonia Functional Status: Reports: Tolerating Diet - Patient Data Vitals - Most Recent: Last Vital Signs Temp 97.9 F 10/08/17 07:00 Pulse 98 10/08/17 08:17 Resp 18 10/08/17 07:00 BP 117/82 10/08/17 08:17 Pulse Ox 95 10/08/17 07:00 Weight - Most Recent: 200 lb 1.6 oz I&O - Last 24 Hours: Intake & Output 10/07/17 10/08/17 10/08/17 22:59 06:59 14:59 Intake Total 990 650 Output Total 200 400 Balance 790 250 Lab Results Last 24 Hours: Laboratory Results - last 24 hr 10/08/17 10/08/17 10/08/17 Range/Units 07:35 07:35 07:35 WBC 26.7 H (5.0-10.0) 10^3/uL RBC 4.82 (4.50-6.00) 10^6/uL Hgb 14.9 (13.0-17.0) g/dL Hct 44.7 (40.0-52.0) % MCV 92.7 H (82.0-92.0) fL MCH 30.9 (27.0-31.0) pg MCHC 33.4 (32.0-36.0) g/dL RDW 14.0 (11.5-14.5) % Plt Count 165 (150-300) 10^3/uL MPV 9.2 (7.4-10.4) fL Neut % (Auto) 93.6 H (50.0-70.0) % Lymph % (Auto) 2.5 L (20.0-40.0) % [place] % (Auto) 3.9 (2.0-8.0) % Eos % (Auto) 0.0 L (1.0-3.0) % Baso % (Auto) 0.0 (0.0-1.0) % Neut # (Auto) 25.0 H (2.5-7.0) 10^3/uL Lymph # (Auto) 0.7 L (1.0-4.0) 10^3/uL [place] # (Auto) 1.0 H (0.1-0.8) 10^3/uL Eos # (Auto) 0.0 L (0.1-0.3) 10^3/uL Baso # (Auto) 0.0 (0.0-0.1) 10^3/uL PT (8.9-11.4) SEC INR (0.9-1.1) Sodium 149 H (136-145) mmol/L Potassium 4.8 (3.3-5.3) mmol/L Chloride 112 (98-115) mmol/L Carbon Dioxide 25.9 (21.0-32.0) mmol/L BUN 22 (6-25) mg/dL Creatinine 1.20 H (0.51-1.17) mg/dL Est Cr Clr Drug Dosing 50.69 mL/min Estimated GFR (MDRD) 58 mL/min Glucose 137 H (70-110) mg/dL Lactic Acid 2.1 H (0.4-2.0) mmol/L Calcium 8.8 (8.7-10.3) mg/dL C-Reactive Protein 5.5 H (0.0-0.9) mg/dL 10/08/17 Range/Units 07:35 WBC (5.0-10.0) 10^3/uL RBC (4.50-6.00) 10^6/uL Hgb (13.0-17.0) g/dL Hct (40.0-52.0) % MCV (82.0-92.0) fL MCH (27.0-31.0) pg MCHC (32.0-36.0) g/dL RDW (11.5-14.5) % Plt Count (150-300) 10^3/uL MPV (7.4-10.4) fL Neut % (Auto) (50.0-70.0) % Lymph % (Auto) (20.0-40.0) % [place] % (Auto) (2.0-8.0) % Eos % (Auto) (1.0-3.0) % Baso % (Auto) (0.0-1.0) % Neut # (Auto) (2.5-7.0) 10^3/uL Lymph # (Auto) (1.0-4.0) 10^3/uL [place] # (Auto) (0.1-0.8) 10^3/uL Eos # (Auto) (0.1-0.3) 10^3/uL Baso # (Auto) (0.0-0.1) 10^3/uL PT 32.4 H (8.9-11.4) SEC INR 3.3 H (0.9-1.1) Sodium (136-145) mmol/L Potassium (3.3-5.3) mmol/L Chloride (98-115) mmol/L Carbon Dioxide (21.0-32.0) mmol/L BUN (6-25) mg/dL Creatinine (0.51-1.17) mg/dL Est Cr Clr Drug Dosing mL/min Estimated GFR (MDRD) mL/min Glucose (70-110) mg/dL Lactic Acid (0.4-2.0) mmol/L Calcium (8.7-10.3) mg/dL C-Reactive Protein (0.0-0.9) mg/dL [place] Results Last 24 Hours: Microbiology 10/06/17 12:05 Aerobic Blood Culture - Preliminary Blood - Venous - Lab Draw NO GROWTH AFTER 1 DAY Anaerobic Blood Culture - Preliminary NO GROWTH AFTER 1 DAY 10/06/17 11:45 Aerobic Blood Culture - Preliminary Blood - Venous NO GROWTH AFTER 1 DAY Anaerobic Blood Culture - Preliminary NO GROWTH AFTER 1 DAY Med Orders - Current: Current Medications Acetaminophen (Tylenol Extra Strength) 1,000 mg PO Q8H PRN PRN Reason: Pain Albuterol (Proventil Neb Soln) 2.5 mg NEB Q4HRRT PRN PRN Reason: Shortness of Breath Albuterol (Ventolin Hfa) 0 gm INH Q4H PRN PRN Reason: Shortness of Breath Atropine Sulfate (Atropine 0.1 Mg/Ml) 0 mg IVPUSH ASDIRECTED PRN PRN Reason: Heart Clonazepam (Klonopin) 0.5 mg PO BEDTIME PENDING SALE TO [facility] Last Admin: 10/07/17 21:22 Dose: 0.5 mg Epinephrine HCl (Epinephrine 1:10,000) 1 mg IVPUSH ASDIRECTED PRN PRN Reason: Heart Guaifenesin (Mucinex) 600 mg PO BID PENDING SALE TO [facility] Last Admin: 10/08/17 08:18 Dose: 600 mg Vancomycin HCl 1 gm/ Sodium (Chloride) 270 mls @ 162 mls/hr IV Q12H PENDING SALE TO [facility] Last Admin: 10/08/17 08:09 Dose: 162 mls/hr Piperacillin/Tazobactam/ (Dextrose 3.375 gm/ Premix) 50 mls @ 100 mls/hr IV Q6H PENDING SALE TO [facility] Last Admin: 10/08/17 06:01 Dose: 100 mls/hr Sodium Chloride (Normal Saline) 250 mls @ 250 mls/hr IV ASDIRECTED PENDING SALE TO [facility] Dextrose/Sodium Chloride (Dextrose 5%-1/2 Ns) 1,000 mls @ 60 mls/hr IV ASDIRECTED PENDING SALE TO [facility] Last Admin: 10/07/17 12:15 Dose: 60 mls/hr Levothyroxine Sodium (Synthroid) 50 mcg PO BEDTIME PENDING SALE TO [facility] Last Admin: 10/07/17 21:22 Dose: 50 mcg Lidocaine HCl (Xylocaine 2%) 0 mg IVPUSH ASDIRECTED PRN PRN Reason: Heart Metoprolol Succinate (Toprol Xl) 50 mg PO DAILY PENDING SALE TO [facility] Last Admin: 10/08/17 08:17 Dose: 50 mg Nitroglycerin (Nitrostat) 0.4 mg SL ASDIRECTED PRN PRN Reason: Heart Prednisone (Prednisone) 40 mg PO DAILY PENDING SALE TO [facility]; Taper Stop: 10/12/17 09:59 Sodium Chloride (Syrex Flush) 5 ml FLUSH Q8HR PRN PRN Reason: Keep Vein Open Vancomycin HCl (Pharmacy To Dose - Vancomycin) 1 dose .XX ASDIRECTED PENDING SALE TO [facility] Warfarin Sodium (Coumadin) 5 mg PO SUTUWETHSA@2100 PENDING SALE TO [facility] Last Admin: 10/07/17 21:22 Dose: 5 mg Discontinued Medications Acetaminophen (Tylenol Extra Strength) 1,000 mg PO ASDIRECTED PRN PRN Reason: Pain Ceftriaxone Sodium (Rocephin) Confirm Administered Dose 1 gm .ROUTE .STK-MED ONE Stop: 10/06/17 13:11 Last Admin: 10/06/17 13:46 Dose: Not Given Ceftriaxone Sodium (Rocephin) 1 gm IVPUSH ONETIME ONE Stop: 10/06/17 13:15 Last Admin: 10/06/17 13:10 Dose: 1 gm Sodium Chloride (Normal Saline) 1,000 mls @ 70 mls/hr IV ASDIRECTED PENDING SALE TO [facility] Last Admin: 10/06/17 18:23 Dose: 70 mls/hr Azithromycin 500 mg/ Sodium (Chloride) 250 mls @ 250 mls/hr IV Q24H PENDING SALE TO [facility] Last Admin: 10/07/17 18:14 Dose: 250 mls/hr Sodium Chloride (Normal Saline) 600 mls @ 200 mls/hr IV .BOLUS ONE Stop: 10/06/17 21:50 Last Admin: 10/06/17 19:47 Dose: 200 mls/hr Non-Formulary Medication (Ipratropium [Atrovent 0.03% Nasal [place]]) 2 spray NASBOTH TID PENDING SALE TO [facility] Non-Formulary Medication (Mecobalamin [B-12]) 1,000 mcg SL Q48H PENDING SALE TO [facility] Last Admin: 10/07/17 07:42 Dose: Not Given Prednisone (Prednisone) 60 mg PO DAILY PENDING SALE TO [facility] Stop: 10/08/17 23:59 Last Admin: 10/07/17 12:24 Dose: Not Given Prednisone (Prednisone) 60 mg PO DAILY PENDING SALE TO [facility] Stop: 10/08/17 23:59 Last Admin: 10/07/17 09:32 Dose: 60 mg Warfarin Sodium (Coumadin) 2.5 mg PO MOFR@2100 PENDING SALE TO [facility] - Problem List Review Problem List Initiated/Reviewed/Updated: Yes - My Orders Last 24 Hours: My Active Orders 10/08/17 10:00 predniSONE 40 mg PO DAILY 10/08/17 10:02 Discontinue Telemetry Monitoring [Cardiac Monitoring Discontinue] [RC] Click to Edit 10/09/17 05:15 CBC WITH AUTO DIFF [HEME] AM COMPREHENSIVE METABOLIC PN,CMP [CHEM] AM - Assessment Assessment:: This very pleasant 82-year-old patient was admitted yesterday because of a right lower lobe pneumonia is being seen today for follow-up. He is feeling much better. Coughing has improved. Dyspnea has improved. His vital signs reveal his blood pressure to be 117/82. Pulse rate is 98. Temperature is 97.9. Intake & Output 10/06/17 10/07/17 10/08/17 10/09/17 06:59 06:59 06:59 06:59 Intake Total 2982 2805 Output Total 200 1150 Balance 2782 1655 Laboratory Last Values WBC 26.7 10^3/uL (5.0-10.0) H 10/08/17 07:35 RBC 4.82 10^6/uL (4.50-6.00) 10/08/17 07:35 Hgb 14.9 g/dL (13.0-17.0) 10/08/17 07:35 Hct 44.7 % (40.0-52.0) 10/08/17 07:35 MCV 92.7 fL (82.0-92.0) H 10/08/17 07:35 MCH 30.9 pg (27.0-31.0) 10/08/17 07:35 MCHC 33.4 g/dL (32.0-36.0) 10/08/17 07:35 RDW 14.0 % (11.5-14.5) 10/08/17 07:35 Plt Count 165 10^3/uL (150-300) 10/08/17 07:35 MPV 9.2 fL (7.4-10.4) 10/08/17 07:35 Neut % (Auto) 93.6 % (50.0-70.0) H 10/08/17 07:35 Lymph % (Auto) 2.5 % (20.0-40.0) L 10/08/17 07:35 [place] % (Auto) 3.9 % (2.0-8.0) 10/08/17 07:35 Eos % (Auto) 0.0 % (1.0-3.0) L 10/08/17 07:35 Baso % (Auto) 0.0 % (0.0-1.0) 10/08/17 07:35 Neut # (Auto) 25.0 10^3/uL (2.5-7.0) H 10/08/17 07:35 Lymph # (Auto) 0.7 10^3/uL (1.0-4.0) L 10/08/17 07:35 [place] # (Auto) 1.0 10^3/uL (0.1-0.8) H 10/08/17 07:35 Eos # (Auto) 0.0 10^3/uL (0.1-0.3) L 10/08/17 07:35 Baso # (Auto) 0.0 10^3/uL (0.0-0.1) 10/08/17 07:35 Add Manual Diff Yes 10/06/17 11:25 Neutrophils % (Manual) 97 % (50-70) H 10/06/17 11:25 Lymphocytes % (Manual) 2 % (20-40) L 10/06/17 11:25 Monocytes % (Manual) 1 % (2-8) L 10/06/17 11:25 Absolute Neutrophils 29.1970 10/06/17 11:25 Lymphocytes # (Manual) 0.6020 10/06/17 11:25 Monocytes # (Manual) 0.3010 10/06/17 11:25 Platelet Estimate Adequate 10/06/17 11:25 Clumped Platelets Few 10/06/17 11:25 RBC Morph Comment See note 10/06/17 11:25 PT 32.4 SEC (8.9-11.4) H 10/08/17 07:35 INR 3.3 (0.9-1.1) H 10/08/17 07:35 APTT 39.3 SEC (20.8-31.2) H 10/06/17 11:25 Sodium 149 mmol/L (136-145) H 10/08/17 07:35 Potassium 4.8 mmol/L (3.3-5.3) 10/08/17 07:35 Chloride 112 mmol/L (98-115) 10/08/17 07:35 Carbon Dioxide 25.9 mmol/L (21.0-32.0) 10/08/17 07:35 BUN 22 mg/dL (6-25) 10/08/17 07:35 Creatinine 1.20 mg/dL (0.51-1.17) H 10/08/17 07:35 Est Cr Clr Drug Dosing 50.69 mL/min 10/08/17 07:35 Estimated GFR (MDRD) 58 mL/min 10/08/17 07:35 Glucose 137 mg/dL (70-110) H 10/08/17 07:35 Lactic Acid 2.1 mmol/L (0.4-2.0) H 10/08/17 07:35 Calcium 8.8 mg/dL (8.7-10.3) 10/08/17 07:35 Magnesium 1.9 mg/dL (1.8-2.4) 10/06/17 11:25 Total Bilirubin 1.2 mg/dL (0.2-1.0) H 10/06/17 11:25 AST 36 U/L (15-37) 10/06/17 11:25 ALT 62 U/L (12-78) 10/06/17 11:25 Alkaline Phosphatase 80 IU/L (46-116) 10/06/17 11:25 Troponin I < 0.04 ng/mL (0.00-0.070) 10/06/17 11:25 C-Reactive Protein 5.5 mg/dL (0.0-0.9) H 10/08/17 07:35 B-Natriuretic Peptide 54 pg/mL (0-100) 10/06/17 11:25 Total Protein 6.8 g/dL (6.4-8.2) 10/06/17 11: Albumin 3.47 g/dL (3.00-4.80) 10/06/17 11: Free T4 0.95 ng/dL (0.59-1.17) 10/06/17 11:25 TSH, Ultra Sensitive 1.120 uIU/mL (0.340-4.820) 10/06/17 11:25 Specimen Type Urinvoid 10/06/17 13:30 Urine Color Yellow (YELLOW) 10/06/17 13:30 Urine Appearance Clear (CLEAR) 10/06/17 13:30 Urine pH 5.0 (5.0-9.0) 10/06/17 13:30 Ur Specific [place] 1.020 (1.005-1.030) 10/06/17 13:30 Urine Protein Negative mg/dL (NEGATIVE) 10/06/17 13:30 Urine Glucose (UA) Negative mg/dL (NEGATIVE) 10/06/17 13:30 Urine Ketones Negative mg/dL (NEGATIVE) 10/06/17 13:30 Urine Occult Blood Trace-intact (NEGATIVE) H 10/06/17 13:30 Urine Nitrite Negative (NEGATIVE) 10/06/17 13:30 Urine Bilirubin Negative (NEGATIVE) 10/06/17 13:30 Urine Urobilinogen 0.2 E.U./dL (0.2-1.0) 10/06/17 13:30 Ur Leukocyte Esterase Negative (NEGATIVE) 10/06/17 13:30 Urine RBC 0-5 /HPF 10/06/17 13:30 Urine WBC 0-5 /HPF 10/06/17 13:30 Ur Epithelial Cells Few /LPF 10/06/17 13:30 Urine Bacteria Few /HPF (NONE TO FEW) 10/06/17 13:30 Vital Signs - 24 hr 10/07/17 10/07/17 10/07/17 11:00 11:30 15:00 Temperature [ 97.8 F 98.0 F Temporal] Pulse, Peripheral Pulse, 86 91 Peripheral [ Pulse Oximetry] Respiratory 16 22 H Rate Blood Pressure Blood Pressure 97/72 [Left Upper Arm ] Blood Pressure 99/66 [Right Upper Arm] O2 Sat by Pulse 95 94 L Oximetry O2 Sat by Pulse 94 L Oximetry [Room Air] 10/07/17 10/07/17 10/08/17 19:00 22:50 03:00 Temperature [ 97.8 F 97.6 F 97.6 F Temporal] Pulse, Peripheral Pulse, 100 87 87 Peripheral [ Pulse Oximetry] Respiratory 24 H 16 20 Rate Blood Pressure Blood Pressure [Left Upper Arm ] Blood Pressure 139/79 118/82 109/73 [Right Upper Arm] O2 Sat by Pulse 98 94 L 92 L Oximetry O2 Sat by Pulse Oximetry [Room Air] 10/08/17 10/08/17 07:00 08:17 Temperature [ 97.9 F Temporal] Pulse, 98 Peripheral Pulse, 99 Peripheral [ Pulse Oximetry] Respiratory 18 Rate Blood Pressure 117/82 Blood Pressure [Left Upper Arm ] Blood Pressure 117/82 [Right Upper Arm] O2 Sat by Pulse 95 Oximetry O2 Sat by Pulse 95 Oximetry [Room Air] Problem #1 pneumonia right side: Chest x-ray shows new consolidation of the right base stent with pneumonia. Patient is definitely improved today. We'll plan to continue with his antibiotics with Zosyn and vancomycin and discontinue Zithromax. Cardiovascular: The patient's hemodynamic status has improved quite nicely. The patient has received IV fluids throughout the day and his hemodynamic status has improved. He is no longer tachycardic. He does remain in atrial fibrillation with a high chads vascular score. Currently back on Coumadin. BNP is normal at 54. Health maintenance: DVT prophylaxis will continue. Intake output status is also good. - Plan Plan:: HISTORY OF PRESENT ILLNESS This 82-year-old gentleman yesterday was admitted through the ED due to atrial fibrillation and shortness of breath. He was initially evaluated at an [facility] however due to limited availability for diagnostics patient was sent to ED for further evaluation and workup. Patient states that he was feeling well 2 days ago, but then started developing up shortness of breath and feeling of increased heart rate. Symptoms worsened about 4 o'clock morning of admission--prompting outpatient appointment. On admission in the ED he denied any chest pain, fever, nausea, vomiting, abdominal pain, peripheral edema, headache, vision changes, or any change in medication. Proximally 2 weeks ago patient was discharged from hospital with bilateral lower lobe pneumonia and a subsequent follow-up from hospitalization he was doing very well without any symptoms. Pertinent ED findings White count 30,000 neutrophilia Hypercoagulable state Chest x-ray [facility], New consolidation right base, inflammatory pneumonitis, No significant pleural fluid or evidence of pneumothorax. No pulmonary venous distention. Update since arrival to the floor; Upon arrival to the floor patient required significant ongoing assessment and intervention due to signs and symptoms of sepsis with hypotension requiring aggressive fluid resuscitation medication changes and lab additions Principal diagnosis Sepsis--likely due to pneumonia Pneumonia RL, POA, likely CAP, rule out atypical Hypernatremia, hypotonic Chronic problems Atrial fibrillation HLD CKD CHF Hypothyroidism RLS Recent gout flareup Long-term anticoagulant therapy CV: Hypotension due to sepsis, much improved fluid resuscitation/boluses throughout the day and evening, qSOFA yesterday 3/3, today 0/3 much improved -- MAP improved, did not require pressors. No longer tachycardia or tachypnea, blood pressure now normalized with normal MAP. No signs of end-organ failure, A. fib, [id number] high, Rate control strategy; throughout admission holding beta sisi due to sepsis, will reinstitute back tonight if continues to be hemodynamically stable. INR now normal, start back on Coumadin. BNP 54 PULMONARY: Pulmonary status has improved, longer hypoxic, requiring less oxygen , no sputum production, pox 96%, chest x-ray demonstrated new consolidation right base, no need for ABG, sputum collection. Oral prednisone, Add Mucinex. On antibiotics INFECTIOUS DISEASE: New consolidation right base, inflammatory pneumonitis, added Zosyn last night, continue with azithromycin and vancomycin. White count improving, lactic acid 3.3 yesterday. CRP 2.0. Pro-calcitonin pending. Attempt to induce sputum today. surveillance. Droplet precautions, assess immunization pneumococcal status. HEMATOLOGY: Hgb/Hct normal. FLUIDS, ELECTROLYTES, AND RENAL: I/O, intake 2982, output 2800, (bolused throughout the day due to sepsis), continue with I&O, no Summers catheter needed, change to half saline today and decrease fluids today. BNP 54. No signs of fluid overload. Creatinine 1.29. ENDOCRINE: TSH normal, continue with supplemental therapy. GI: No vomiting, taking by mouth fluids. HEALTH MAINTENANCE: DVT prophylaxis, cross covered with Coumadin. Assess pneumococcal vaccine status Overall plan, continue antibiotics, decrease IV fluids, change IV fluids, add Mucinex, can removed from telemetry status, reinitiate beta blockers tonight, blood culture surveillance, monitor for any endorgan system and ongoing sepsis
[2017-10-08] MEDS: Dextrose 5%-0.45% NaCl 1,000 ML IV SCH (11:56)
[2017-10-08] MEDS: ClonazePAM 0.5 MG Tab PO SCH (20:54)
[2017-10-08] MEDS: Levothyroxine 50 MCG Tab PO SCH (20:54)
[2017-10-08] MEDS ORDERED: Warfarin 5 MG Tab PO SCH (21:00)
[2017-10-09] MEDS: Piperacillin/Tazobactam/Dext 3.375 GM in Premix Bag 1 BAG IV SCH ×4 (00:51→18:45)
[2017-10-09] MEDS: Dextrose 5%-0.45% NaCl 1,000 ML IV SCH (06:43)
[2017-10-09] MEDS: guaiFENesin 600 MG Tab.ER PO SCH ×2 (08:50→21:11)
[2017-10-09] MEDS: predniSONE 20 MG Tab PO SCH (08:51)
[2017-10-09] MEDS: Metoprolol Succinate 50 MG Tab.ER PO SCH (08:53)
[2017-10-09] MEDS ORDERED: predniSONE 20 MG Tab PO SCH (09:00)
[2017-10-09] MEDS ORDERED: Hydrocortisone 1% Crm 30 GM Tube TOP PRN (11:30)
--- NOTE | 2017-10-09 12:02 | PCM.PN ---
- General Info Date of Service: 10/09/17 Subjective Update: Mr. Hutchinson reports continued improvement in his breathing since admission. Continuing to have cough, though improved. Has had onset of loose--not liquid-- stools and resultant flare of his hemorrhoids. Tolerating diet well. Voiding well. Denies fever, chills, shortness of breath, chest pain, abdominal pain, rectal bleeding, dysuria, rash, or new concerns. No nursing concerns. - Patient Data Vitals - Most Recent: Last Vital Signs Temp 36.4 C 10/09/17 11:00 Pulse 69 10/09/17 11:00 Resp 16 10/09/17 11:00 BP 127/76 10/09/17 11:00 Pulse Ox 96 10/09/17 11:00 Weight - Most Recent: 90.764 kg I&O - Last 24 Hours: Intake & Output 10/08/17 10/09/17 10/09/17 22:59 06:59 14:59 Intake Total 920 741 Output Total 500 125 Balance 420 616 Lab Results Last 24 Hours: Laboratory Results - last 24 hr 10/08/17 10/09/17 10/09/17 Range/Units 19:30 07:20 07:20 WBC 17.2 H (5.0-10.0) 10^3/uL RBC 4.59 (4.50-6.00) 10^6/uL Hgb 14.0 (13.0-17.0) g/dL Hct 42.7 (40.0-52.0) % MCV 93.0 H (82.0-92.0) fL MCH 30.5 (27.0-31.0) pg MCHC 32.8 (32.0-36.0) g/dL RDW 14.0 (11.5-14.5) % Plt Count 181 (150-300) 10^3/uL MPV 9.1 (7.4-10.4) fL Neut % (Auto) 91.5 H (50.0-70.0) % Lymph % (Auto) 3.8 L (20.0-40.0) % [place] % (Auto) 4.2 (2.0-8.0) % Eos % (Auto) 0.3 L (1.0-3.0) % Baso % (Auto) 0.2 (0.0-1.0) % Neut # (Auto) 15.7 H (2.5-7.0) 10^3/uL Lymph # (Auto) 0.7 L (1.0-4.0) 10^3/uL [place] # (Auto) 0.7 (0.1-0.8) 10^3/uL Eos # (Auto) 0.1 (0.1-0.3) 10^3/uL Baso # (Auto) 0.0 (0.0-0.1) 10^3/uL PT (8.9-11.4) SEC INR (0.9-1.1) Sodium 149 H (136-145) mmol/L Potassium 4.4 (3.3-5.3) mmol/L Chloride 111 (98-115) mmol/L Carbon Dioxide 26.5 (21.0-32.0) mmol/L BUN 21 (6-25) mg/dL Creatinine 1.29 H (0.51-1.17) mg/dL Est Cr Clr Drug Dosing 47.16 mL/min Estimated GFR (MDRD) 54 mL/min Glucose 109 (70-110) mg/dL Calcium 8.4 L (8.7-10.3) mg/dL Total Bilirubin 0.9 (0.2-1.0) mg/dL AST 44 H (15-37) U/L ALT 86 H (12-78) U/L Alkaline Phosphatase 55 (46-116) IU/L Total Protein 6.2 L (6.4-8.2) g/dL Albumin 2.74 L (3.00-4.80) g/dL Vancomycin Trough 15.4 (10-20) ug/mL 10/09/17 Range/Units 07:20 WBC (5.0-10.0) 10^3/uL RBC (4.50-6.00) 10^6/uL Hgb (13.0-17.0) g/dL Hct (40.0-52.0) % MCV (82.0-92.0) fL MCH (27.0-31.0) pg MCHC (32.0-36.0) g/dL RDW (11.5-14.5) % Plt Count (150-300) 10^3/uL MPV (7.4-10.4) fL Neut % (Auto) (50.0-70.0) % Lymph % (Auto) (20.0-40.0) % [place] % (Auto) (2.0-8.0) % Eos % (Auto) (1.0-3.0) % Baso % (Auto) (0.0-1.0) % Neut # (Auto) (2.5-7.0) 10^3/uL Lymph # (Auto) (1.0-4.0) 10^3/uL Gentry # (Auto) (0.1-0.8) 10^3/uL Eos # (Auto) (0.1-0.3) 10^3/uL Baso # (Auto) (0.0-0.1) 10^3/uL PT 34.2 H (8.9-11.4) SEC INR 3.5 H (0.9-1.1) Sodium (136-145) mmol/L Potassium (3.3-5.3) mmol/L Chloride (98-115) mmol/L Carbon Dioxide (21.0-32.0) mmol/L BUN (6-25) mg/dL Creatinine (0.51-1.17) mg/dL Est Cr Clr Drug Dosing mL/min Estimated GFR (MDRD) mL/min Glucose (70-110) mg/dL Calcium (8.7-10.3) mg/dL Total Bilirubin (0.2-1.0) mg/dL AST (15-37) U/L ALT (12-78) U/L Alkaline Phosphatase (46-116) IU/L Total Protein (6.4-8.2) g/dL Albumin (3.00-4.80) g/dL Vancomycin Trough (10-20) ug/mL Jarrell Results Last 24 Hours: Microbiology 10/06/17 12:05 Aerobic Blood Culture - Preliminary Blood - Venous - Lab Draw NO GROWTH AFTER 2 DAYS Anaerobic Blood Culture - Preliminary NO GROWTH AFTER 2 DAYS 10/06/17 11:45 Aerobic Blood Culture - Preliminary Blood - Venous NO GROWTH AFTER 2 DAYS Anaerobic Blood Culture - Preliminary NO GROWTH AFTER 2 DAYS Med Orders - Current: Current Medications Acetaminophen (Tylenol Extra Strength) 1,000 mg PO Q8H PRN PRN Reason: Pain Albuterol (Proventil Neb Soln) 2.5 mg NEB Q4HRRT PRN PRN Reason: Shortness of Breath Albuterol (Ventolin Hfa) 0 gm INH Q4H PRN PRN Reason: Shortness of Breath Atropine Sulfate (Atropine 0.1 Mg/Ml) 0 mg IVPUSH ASDIRECTED PRN PRN Reason: Heart Clonazepam (Klonopin) 0.5 mg PO BEDTIME [facility] Last Admin: 10/08/17 20:54 Dose: 0.5 mg Epinephrine HCl (Epinephrine 1:10,000) 1 mg IVPUSH ASDIRECTED PRN PRN Reason: Heart Guaifenesin (Mucinex) 600 mg PO BID [facility] Last Admin: 10/09/17 08:50 Dose: 600 mg Hydrocortisone (Hydrocortisone 1% Crm) 0 gm TOP Q6H PRN PRN Reason: Other Vancomycin HCl 1 gm/ Sodium (Chloride) 270 mls @ 162 mls/hr IV Q12H [facility] Last Admin: 10/09/17 08:28 Dose: 162 mls/hr Piperacillin/Tazobactam/ (Dextrose 3.375 gm/ Premix) 50 mls @ 100 mls/hr IV Q6H [facility] Last Admin: 10/09/17 06:44 Dose: 100 mls/hr Dextrose/Sodium Chloride (Dextrose 5%-1/2 Ns) 1,000 mls @ 60 mls/hr IV ASDIRECTED [facility] Last Admin: 10/09/17 06:43 Dose: 60 mls/hr Lactobacillus Acidophilus/Rhamnosus (Multi-Jory Plus) 1 cap PO DAILY [facility] Levothyroxine Sodium (Synthroid) 50 mcg PO BEDTIME [facility] Last Admin: 10/08/17 20:54 Dose: 50 mcg Lidocaine HCl (Xylocaine 2%) 0 mg IVPUSH ASDIRECTED PRN PRN Reason: Heart Metoprolol Succinate (Toprol Xl) 50 mg PO DAILY [facility] Last Admin: 10/09/17 08:53 Dose: 50 mg Nitroglycerin (Nitrostat) 0.4 mg SL ASDIRECTED PRN PRN Reason: Heart Prednisone (Prednisone) 30 mg PO DAILY [facility]; Taper Stop: 10/12/17 08:59 Last Admin: 10/09/17 08:51 Dose: 30 mg Sodium Chloride (Syrex Flush) 5 ml FLUSH Q8HR PRN PRN Reason: Keep Vein Open Vancomycin HCl (Pharmacy To Dose - Vancomycin) 1 dose .XX ASDIRECTED [facility] Warfarin Sodium (Coumadin) 5 mg PO SUTUWETHSA@2100 [facility] Last Admin: 10/07/17 21:22 Dose: 5 mg Discontinued Medications Acetaminophen (Tylenol Extra Strength) 1,000 mg PO ASDIRECTED PRN PRN Reason: Pain Ceftriaxone Sodium (Rocephin) Confirm Administered Dose 1 gm .ROUTE .STK-MED ONE Stop: 10/06/17 13:11 Last Admin: 10/06/17 13:46 Dose: Not Given Ceftriaxone Sodium (Rocephin) 1 gm IVPUSH ONETIME ONE Stop: 10/06/17 13:15 Last Admin: 10/06/17 13:10 Dose: 1 gm Sodium Chloride (Normal Saline) 1,000 mls @ 70 mls/hr IV ASDIRECTED [facility] Last Admin: 10/06/17 18:23 Dose: 70 mls/hr Azithromycin 500 mg/ Sodium (Chloride) 250 mls @ 250 mls/hr IV Q24H [facility] Last Admin: 10/07/17 18:14 Dose: 250 mls/hr Sodium Chloride (Normal Saline) 600 mls @ 200 mls/hr IV .BOLUS ONE Stop: 10/06/17 21:50 Last Admin: 10/06/17 19:47 Dose: 200 mls/hr Sodium Chloride (Normal Saline) 250 mls @ 250 mls/hr IV ASDIRECTED [facility] Non-Formulary Medication (Ipratropium [Atrovent 0.03% Nasal [place]]) 2 spray NASBOTH TID [facility] Non-Formulary Medication (Mecobalamin [B-12]) 1,000 mcg SL Q48H [facility] Last Admin: 10/07/17 07:42 Dose: Not Given Prednisone (Prednisone) 60 mg PO DAILY [facility] Stop: 10/08/17 23:59 Last Admin: 10/07/17 12:24 Dose: Not Given Prednisone (Prednisone) 60 mg PO DAILY [facility] Stop: 10/08/17 23:59 Last Admin: 10/08/17 11:47 Dose: Not Given Prednisone (Prednisone) 40 mg PO DAILY [facility]; Taper Stop: 10/12/17 09:59 Prednisone (Prednisone) 40 mg PO DAILY [facility]; Taper Stop: 10/13/17 08:59 Last Admin: 10/08/17 10:54 Dose: 40 mg Warfarin Sodium (Coumadin) 2.5 mg PO MOFR@2100 [facility] - Exam Physical Findings Comments:: GENERAL: Well-appearing elderly white male sitting in bedside chair in no acute distress. HEENT: Normocephalic, atraumatic. Conjunctiva clear. Nares patent without discharge. Mucous membranes moist, posterior pharynx unremarkable. NECK: Supple, no masses. CV: Irregular, no murmurs, rubs, or gallops. 2+ radial pulses. PULMONARY: Normal effort, faint rhonchi in right base and otherwise clear, no wheezes. ABDOMEN: Positive bowel sounds, soft, nontender, nondistended. EXTREMITIES: No edema, cyanosis, or clubbing. MUSCULOSKELETAL: Moves all extremities well. NEUROLOGICAL: No obvious deficits. DERMATOLOGIC: No rashes or suspicious lesions in exposed areas. PSYCHIATRIC: Alert, interactive, appropriate affect. - Problem List Review Problem List Initiated/Reviewed/Updated: Yes - My Orders Last 24 Hours: My Active Orders 10/09/17 11:30 Hydrocortisone [Hydrocortisone 1% Crm] See Dose Instructions TOP Q6H PRN 10/09/17 11:45 B.Bif/B.Long/L.Acidoph/L.Rhamn [Multi-Jory Plus] 1 cap PO DAILY 10/10/17 05:11 CBC WITH AUTO DIFF [HEME] AM COMPREHENSIVE METABOLIC PN,CMP [CHEM] AM CRP [C-REACTIVE PROTEIN] [CHEM] AM INR,PT,PROTHROMBIN TIME [COAG] AM - Plan Plan:: 82yoM with history of recent admission for bilateral lower lobe pneumonia who was evaluated on the day of admission at [facility] for shortness of breath and subsequently sent to the [facility] ED for further evaluation and work-up due to limited availability of diagnostics at outside clinic. He was noted to be tachycardic, hypotensive, and with increased work of breathing with diagnostics showing WBC 30 and CXR with RLL consolidation. He was admitted for pneumonia and associated sepsis. During initial day of hospitalization, he required close monitoring and intervention with aggressive IVF rehydration, IV antibiotic therapy, and glucocorticoid initiation. Sepsis has since resolved and he has continued to make clinical progress in respiratory status, leukocytosis, and electrolyte abnormalities. # Severe sepsis, resolved # Lactic acidosis, resolved # Hypotension, resolved # Acute hypoxic respiratory failure, resolved # Pneumonia, RLL, health care associated given recent hospitalization # Hypernatremia # Transaminitis # Protein calorie malnutrition # Supratherapeutic INR # Hx hemorrhoids with current flare per patient Excellent ongoing clinical and laboratory improvement. Blood cultures with no growth x2 days. No sputum culture has been obtained so likely will not be able to identify culprit organism definitively. No history of or risks for aspiration , but certainly a possibility given location. Confirmed prior pneumococcal vaccination with 13 and 23 valent vaccines. - Continue with Zosyn and vancomycin; if continued clinical improvement, will plan to transition to oral therapy tomorrow - Continue prednisone burst, guaifenesin, albuterol prn - Hold warfarin today - Start probiotic - Start hydrocortisone cream to hemorrhoids prn - Stop IVF - Encourage protein-rich diet - Recheck labs tomorrow Chronic, stable medical conditions: # Atrial fibrillation: Metoprolol restarted. Anticoagulation with warfarin, as above. # CHF: Fluid status now neutral. # CKD, stage 3: At baseline Cr of 1.2. # Hypothyroidism: Continue levothyroxine. # RLS: Stable. # Gout: No current evidence of flare. # Insomnia: Continue clonazepam; consider decrease and discontinuation of this in the future given age and risks. Hospitalization details: # FEN: Stop IVF. Electrolytes improving with mild hypernatremia; recheck tomorrow. Regular diet. # PPX: Supratherapeutic INR, so no further DVT ppx needed. # Code status: FULL. # Disposition: Continue on inpatient status. Anticipate possible discharge to home tomorrow pending ongoing clinical improvement.
[2017-10-09] MEDS: B.Bifidum/B.Longum/L.Acidophilus/L.Rhamnosus (Probiotic) Cap PO SCH (12:56)
[2017-10-09] MEDS: ClonazePAM 0.5 MG Tab PO SCH (21:11)
[2017-10-09] MEDS: Levothyroxine 50 MCG Tab PO SCH (21:11)
[2017-10-10] MEDS: Piperacillin/Tazobactam/Dext 3.375 GM in Premix Bag 1 BAG IV SCH ×2 (01:06→06:41)
[2017-10-10] MEDS: guaiFENesin 600 MG Tab.ER PO SCH (08:39)
[2017-10-10 08:40] VITALS: BP 106/73
[2017-10-10] MEDS: predniSONE 20 MG Tab PO SCH (08:40)
[2017-10-10] MEDS: Metoprolol Succinate 50 MG Tab.ER PO SCH (08:40)
[2017-10-10] MEDS: B.Bifidum/B.Longum/L.Acidophilus/L.Rhamnosus (Probiotic) Cap PO SCH (08:40)
[2017-10-10] MEDS ORDERED: Amoxicillin/Clavulanate K 875-125 MG Tab PO ONE (11:07)
--- NOTE | 2017-10-10 11:09 | PCM.DCSUM1 ---
Discharge Summary - Hospital Course Free Text/Narrative:: Date of admission: 10/06/17 Date of discharge: 11/09/17 Admission diagnoses: 1. Severe sepsis 2. Lactic acidosis 3. Hypotension 4. Acute hypoxic respiratory failure 5. Pneumonia, RLL, health care associated 6. Hypernatremia 7. Protein calorie malnutrition Discharge diagnoses: 1. Severe sepsis, resolved 2. Lactic acidosis, resolved 3. Hypotension, resolved 4. Acute hypoxic respiratory failure, resolved 5. Pneumonia, RLL, health care associated 6. Hypernatremia 7. Protein calorie malnutrition 8. Transaminitis 9. Supratherapeutic INR Consultations: None Procedures: None Hospital course: 82yoM with history of recent admission for bilateral lower lobe pneumonia who was evaluated on the day of admission at [facility] for shortness of breath and subsequently sent to the [facility] ED for further evaluation and work-up due to limited availability of diagnostics at outside clinic. He was noted to be tachycardic, hypotensive, and with increased work of breathing with diagnostics showing WBC 30 and CXR with RLL consolidation. He was admitted for pneumonia and associated sepsis. During initial day of hospitalization, he required close monitoring and intervention with aggressive IVF rehydration, IV antibiotic therapy, and glucocorticoid initiation. Sepsis subsequently resolved and he continued to make clinical progress in respiratory status, leukocytosis, and electrolyte abnormalities. Blood cultures with no growth x4 days. No sputum culture was obtained so will not be able to identify culprit organism definitively. No history of or risks for aspiration, but certainly a possibility given location. Confirmed prior pneumococcal vaccination with 13 and 23 valent vaccines. He was continued on other medications for chronic medical conditions with the exception of holding metoprolol during acute sepsis and warfarin adjusted based on supratherapeutic INR. He was deemed ready for discharge back to home. He was discharged on prior home medications in addition to Augmentin to finish antibiotic course for RLL, prednisone to finish 5 day burst, and Mucinex. He will follow-up with PCP DELL Minaya, in 3-5 days. - Discharge Data Discharge Date: 10/10/17 Discharge Disposition: Home, Self-Care 01 Condition: Good - Patient Instructions Diet: Usual Diet as Tolerated Notify Provider of: Fever Other/Special Instructions: Worsening cough or shortness of breath - Discharge Plan Prescriptions/Med Rec: Amoxicillin/Clavulanate K [Augmentin 875-125 MG] 1 tab PO BID 5 Days #10 tablet guaiFENesin [Mucinex] 600 mg PO BID #10 tab.er Prednisone [IJD: predniSONE] 20 mg PO DAILY 2 Days #2 tablet Home Medications: Home Meds Acetaminophen [Acetaminophen Extra Strength] 1,000 mg PO ASDIRECTED PRN [History] Albuterol Sulfate [Albuterol Sulfate HFA] 1 puff INH Q4H PRN 05/23/14 [History] ClonazePAM [KlonoPIN] 0.5 mg PO BEDTIME 05/23/14 [History] Levothyroxine [Synthroid] 50 mcg PO BEDTIME 05/23/14 [History] Losartan [Cozaar] 25 mg PO DAILY 05/23/14 [History] Warfarin [Coumadin] 5 mg PO SUTUWETHSA@2100 05/23/14 [History] Cholecalciferol (Vitamin D3) [Vitamin D3] 1,000 unit PO Q48H 09/24/17 [History] Ipratropium [Atrovent 0.03% Nasal [place]] 2 spray NASBOTH TID 09/24/17 [History] Mecobalamin [B-12] 1,000 mcg SL Q48H 09/24/17 [History] Metoprolol Succinate 50 mg PO DAILY 09/24/17 [History] Warfarin [Coumadin] 2.5 mg PO MOFR@2100 09/24/17 [History] Amoxicillin/Clavulanate K [Augmentin 875-125 MG] 1 tab PO BID 5 Days #10 tablet 10/10/17 [Rx] Prednisone [IJD: predniSONE] 20 mg PO DAILY 2 Days #2 tablet 10/10/17 [Rx] guaiFENesin [Mucinex] 600 mg PO BID #10 tab.er 10/10/17 [Rx] Referrals: Tiffani Arguello [employer] [Primary Care Provider] - (This week) - Discharge Summary/Plan Comment DC Time >30 min.: Yes - General Info Subjective Update: Mr. Hutchinson reports continued improvement in his breathing. Cough nearly resolved. Diarrhea improving. Hemorrhoids improved with use of topical hydrocortisone. Tolerating diet well. Voiding well. Denies fever, chills, shortness of breath, chest pain, abdominal pain, rectal bleeding, or new concerns. - Patient Data Vitals - Most Recent: Last Vital Signs Temp 37.2 C 10/10/17 06:14 Pulse 100 10/10/17 08:40 Resp 18 10/10/17 06:14 BP 106/73 10/10/17 08:40 Pulse Ox 97 10/10/17 07:00 Weight - Most Recent: 90.764 kg I&O - Last 24 hours: Intake & Output 10/09/17 10/10/17 10/10/17 22:59 06:59 14:59 Intake Total 710 225 Output Total 800 Balance 710 -575 Lab Results - Last 24 hrs: Laboratory Results - last 24 hr 10/10/17 10/10/17 10/10/17 Range/Units 06:45 06:45 06:45 WBC 13.3 H (5.0-10.0) 10^3/uL RBC 4.80 (4.50-6.00) 10^6/uL Hgb 14.3 (13.0-17.0) g/dL Hct 44.6 (40.0-52.0) % MCV 92.9 H (82.0-92.0) fL MCH 29.8 (27.0-31.0) pg MCHC 32.1 (32.0-36.0) g/dL RDW 13.7 (11.5-14.5) % Plt Count 192 (150-300) 10^3/uL MPV 8.8 (7.4-10.4) fL Neut % (Auto) 88.5 H (50.0-70.0) % Lymph % (Auto) 6.0 L (20.0-40.0) % [place] % (Auto) 4.9 (2.0-8.0) % Eos % (Auto) 0.3 L (1.0-3.0) % Baso % (Auto) 0.3 (0.0-1.0) % Neut # (Auto) 11.8 H (2.5-7.0) 10^3/uL Lymph # (Auto) 0.8 L (1.0-4.0) 10^3/uL [place] # (Auto) 0.7 (0.1-0.8) 10^3/uL Eos # (Auto) 0.0 L (0.1-0.3) 10^3/uL Baso # (Auto) 0.0 (0.0-0.1) 10^3/uL PT 21.9 H D (8.9-11.4) SEC INR 2.2 H (0.9-1.1) Sodium 142 (136-145) mmol/L Potassium 4.1 (3.3-5.3) mmol/L Chloride 109 (98-115) mmol/L Carbon Dioxide 26.3 (21.0-32.0) mmol/L BUN 20 (6-25) mg/dL Creatinine 1.24 H (0.51-1.17) mg/dL Est Cr Clr Drug Dosing 49.06 mL/min Estimated GFR (MDRD) 56 mL/min Glucose 104 (70-110) mg/dL Calcium 8.4 L (8.7-10.3) mg/dL Total Bilirubin 0.9 (0.2-1.0) mg/dL AST 31 (15-37) U/L ALT 72 (12-78) U/L Alkaline Phosphatase 62 (46-116) IU/L C-Reactive Protein 2.0 H (0.0-0.9) mg/dL Total Protein 6.3 L (6.4-8.2) g/dL Albumin 2.70 L (3.00-4.80) g/dL DARLINE Results - Last 24 hrs: Microbiology 10/06/17 12:05 Aerobic Blood Culture - Preliminary Blood - Venous - Lab Draw NO GROWTH AFTER 3 DAYS Anaerobic Blood Culture - Preliminary NO GROWTH AFTER 3 DAYS 10/06/17 11:45 Aerobic Blood Culture - Preliminary Blood - Venous NO GROWTH AFTER 3 DAYS Anaerobic Blood Culture - Preliminary NO GROWTH AFTER 3 DAYS Med Orders - Current: Current Medications Acetaminophen (Tylenol Extra Strength) 1,000 mg PO Q8H PRN PRN Reason: Pain Albuterol (Proventil Neb Soln) 2.5 mg NEB Q4HRRT PRN PRN Reason: Shortness of Breath Albuterol (Ventolin Hfa) 0 gm INH Q4H PRN PRN Reason: Shortness of Breath Amoxicillin/Clavulanate Potassium (Augmentin 875 Mg/125 Mg) 1 tab PO ONETIME ONE Stop: 10/10/17 11:08 Atropine Sulfate (Atropine 0.1 Mg/Ml) 0 mg IVPUSH ASDIRECTED PRN PRN Reason: Heart Clonazepam (Klonopin) 0.5 mg PO BEDTIME [facility] Last Admin: 10/09/17 21:11 Dose: 0.5 mg Epinephrine HCl (Epinephrine 1:10,000) 1 mg IVPUSH ASDIRECTED PRN PRN Reason: Heart Guaifenesin (Mucinex) 600 mg PO BID [facility] Last Admin: 10/10/17 08:39 Dose: 600 mg Hydrocortisone (Hydrocortisone 1% Crm) 0 gm TOP Q6H PRN PRN Reason: Other Vancomycin HCl 1 gm/ Sodium (Chloride) 270 mls @ 162 mls/hr IV Q12H [facility] Last Admin: 10/10/17 07:39 Dose: 162 mls/hr Piperacillin/Tazobactam/ (Dextrose 3.375 gm/ Premix) 50 mls @ 100 mls/hr IV Q6H [facility] Last Admin: 10/10/17 06:41 Dose: 100 mls/hr Lactobacillus Acidophilus/Rhamnosus (Multi-Jory Plus) 1 cap PO DAILY [facility] Last Admin: 10/10/17 08:40 Dose: 1 cap Levothyroxine Sodium (Synthroid) 50 mcg PO BEDTIME [facility] Last Admin: 10/09/17 21:11 Dose: 50 mcg Lidocaine HCl (Xylocaine 2%) 0 mg IVPUSH ASDIRECTED PRN PRN Reason: Heart Metoprolol Succinate (Toprol Xl) 50 mg PO DAILY [facility] Last Admin: 10/10/17 08:40 Dose: 50 mg Nitroglycerin (Nitrostat) 0.4 mg SL ASDIRECTED PRN PRN Reason: Heart Prednisone (Prednisone) 20 mg PO DAILY [facility]; Taper Stop: 10/12/17 08:59 Last Admin: 10/10/17 08:40 Dose: 20 mg Sodium Chloride (Syrex Flush) 5 ml FLUSH Q8HR PRN PRN Reason: Keep Vein Open Vancomycin HCl (Pharmacy To Dose - Vancomycin) 1 dose .XX ASDIRECTED [facility] Warfarin Sodium (Coumadin) 5 mg PO SUTUWETHSA@2100 [facility] Last Admin: 10/07/17 21:22 Dose: 5 mg Discontinued Medications Acetaminophen (Tylenol Extra Strength) 1,000 mg PO ASDIRECTED PRN PRN Reason: Pain Ceftriaxone Sodium (Rocephin) Confirm Administered Dose 1 gm .ROUTE .STK-MED ONE Stop: 10/06/17 13:11 Last Admin: 10/06/17 13:46 Dose: Not Given Ceftriaxone Sodium (Rocephin) 1 gm IVPUSH ONETIME ONE Stop: 10/06/17 13:15 Last Admin: 10/06/17 13:10 Dose: 1 gm Sodium Chloride (Normal Saline) 1,000 mls @ 70 mls/hr IV ASDIRECTED [facility] Last Admin: 10/06/17 18:23 Dose: 70 mls/hr Azithromycin 500 mg/ Sodium (Chloride) 250 mls @ 250 mls/hr IV Q24H [facility] Last Admin: 10/07/17 18:14 Dose: 250 mls/hr Sodium Chloride (Normal Saline) 600 mls @ 200 mls/hr IV .BOLUS ONE Stop: 10/06/17 21:50 Last Admin: 10/06/17 19:47 Dose: 200 mls/hr Sodium Chloride (Normal Saline) 250 mls @ 250 mls/hr IV ASDIRECTED [facility] Dextrose/Sodium Chloride (Dextrose 5%-1/2 Ns) 1,000 mls @ 60 mls/hr IV ASDIRECTED [facility] Last Admin: 10/09/17 06:43 Dose: 60 mls/hr Non-Formulary Medication (Ipratropium [Atrovent 0.03% Nasal [place]]) 2 spray NASBOTH TID [facility] Non-Formulary Medication (Mecobalamin [B-12]) 1,000 mcg SL Q48H [facility] Last Admin: 10/07/17 07:42 Dose: Not Given Prednisone (Prednisone) 60 mg PO DAILY [facility] Stop: 10/08/17 23:59 Last Admin: 10/07/17 12:24 Dose: Not Given Prednisone (Prednisone) 60 mg PO DAILY [facility] Stop: 10/08/17 23:59 Last Admin: 10/08/17 11:47 Dose: Not Given Prednisone (Prednisone) 40 mg PO DAILY [facility]; Taper Stop: 10/12/17 09:59 Prednisone (Prednisone) 40 mg PO DAILY [facility]; Taper Stop: 10/13/17 08:59 Last Admin: 10/08/17 10:54 Dose: 40 mg Warfarin Sodium (Coumadin) 2.5 mg PO MOFR@2100 [facility] - Exam Physical Findings Comments:: GENERAL: Well-appearing elderly white male sitting in bedside chair in no acute distress. HEENT: Normocephalic, atraumatic. Conjunctiva clear. Nares patent without discharge. Mucous membranes moist, posterior pharynx unremarkable. NECK: Supple, no masses. CV: Irregular, no murmurs, rubs, or gallops. 2+ radial pulses. PULMONARY: Normal effort, clear to auscultation bilaterally, no wheezes, rales, or rhonchi. ABDOMEN: Positive bowel sounds, soft, nontender, nondistended. EXTREMITIES: No edema, cyanosis, or clubbing. MUSCULOSKELETAL: Moves all extremities well. NEUROLOGICAL: No obvious deficits. DERMATOLOGIC: No rashes or suspicious lesions in exposed areas. PSYCHIATRIC: Alert, interactive, appropriate affect.
== END 2017-10-10 13:30 | disposition home or self-care (01) | DRG 871 ==
LOC: KA.ED 11:08 → KA.MS 13:54 → UNDODISIN 10-10 13:30
PROVIDERS: ADMIT Physician Assistant Surgical; ATTEND Family Medicine
DX: A41.9 Sepsis, unspecified organism (principal); J18.1 Lobar pneumonia, unspecified organism; J96.01 Acute respiratory failure with hypoxia; E87.0 Hyperosmolality and hypernatremia; E87.2 Acidosis; E46 Unspecified protein-calorie malnutrition; I95.9 Hypotension, unspecified; R74.0 Nonspecific elevation of levels of transaminase and lactic acid dehydrogenase [LDH]; R79.1 Abnormal coagulation profile; I48.91 Unspecified atrial fibrillation; I50.9 Heart failure, unspecified; N18.3 Chronic kidney disease, stage 3 (moderate); I10 Essential (primary) hypertension; E78.5 Hyperlipidemia, unspecified; E03.9 Hypothyroidism, unspecified; E53.8 Deficiency of other specified B group vitamins; M10.9 Gout, unspecified; G47.00 Insomnia, unspecified; Z88.8 Allergy status to other drugs, medicaments and biological substances; Z79.899 Other long term (current) drug therapy; Z79.01 Long term (current) use of anticoagulants
CPT/HCPCS: 36415; 80053; 81001; 83735; 83880; 84439; 84443; 84484; 85025; 85610; 85730; 86140; 87040 ×2; 96374; 99285; J0696; 80048; 80202; 83605; 93005; 99284; A9270-GY; J0456; J2543; J3370; J7030; J7042; J7050

== ENCOUNTER 2018-09-07 16:09 | Inpatient (IN) | payer MEDICARE, OTHER ==
[2018-09-07] MEDS ORDERED: methylPREDNISolone Sodium Succinate 125 MG/2 ML SDV IVPUSH ONE (16:28)
[2018-09-07 17:25] LABS: O2 DELIVERY DEVICE ROOM AIR; O2 SATURATION ARTERIAL 91 % (95-98); PCO2 ARTERIAL 31 mmHG (35-45); PO2 ARTERIAL 57 mmHG (80-105)
[2018-09-07 17:26] LABS: BASE EXCESS ARTERIAL -2 mmol/L (-2-3); BICARBONATE,ARTERIAL 21.6 mmol/L (22-26)
[2018-09-07] MEDS: Albuterol/Ipratropium 3.0-0.5 MG/3 ML Neb Soln NEB SCH ×2 (17:33→22:32)
[2018-09-07 17:44] LABS: ANION GAP 14.9 mmol/L (5-15)
[2018-09-07] MEDS ORDERED: Albuterol 8 GM Inhaler INH PRN (19:42)
[2018-09-07] MEDS: Levothyroxine 50 MCG Tab PO SCH (20:55)
[2018-09-07] MEDS ORDERED: ClonazePAM 0.5 MG Tab PO SCH (21:00)
[2018-09-07] MEDS ORDERED: Metoprolol Tartrate 25 MG Tab PO SCH (23:15)
[2018-09-08] MEDS: Albuterol/Ipratropium 3.0-0.5 MG/3 ML Neb Soln NEB SCH ×4 (05:35→23:09)
[2018-09-08] MEDS: Acetaminophen 500 MG Tab PO PRN (06:24)
[2018-09-08] MEDS ORDERED: methylPREDNISolone Sodium Succinate 125 MG/2 ML SDV IVPUSH SCH (09:00)
[2018-09-08] MEDS: Allopurinol 100 MG Tab PO SCH (09:30)
[2018-09-08] MEDS: Cholecalciferol (Vitamin D3) 1,000 Unit Tab PO SCH (09:34)
[2018-09-08] MEDS: Sodium Chloride 0.9% 10 ML Syringe FLUSH PRN ×2 (09:35→17:19)
[2018-09-08] MEDS: Metoprolol Succinate 50 MG Tab.ER PO SCH (09:44)
[2018-09-08] MEDS: Losartan 25 MG Tab PO SCH (09:44)
--- NOTE | 2018-09-08 13:15 | PCM.PN ---
- General Info Date of Service: 09/08/18 - Patient Data Vitals - Most Recent: Last Vital Signs Temp 98.1 F 09/08/18 11:00 Pulse 128 H 09/08/18 11:11 Resp 16 09/08/18 11:00 BP 102/68 09/08/18 11:00 Pulse Ox 96 09/08/18 11:11 Weight - Most Recent: 192 lb 1.6 oz I&O - Last 24 Hours: Intake & Output 09/07/18 09/08/18 09/08/18 22:59 06:59 14:59 Intake Total 200 100 Output Total 500 Balance 200 -400 Lab Results Last 24 Hours: Laboratory Results - last 24 hr 09/07/18 09/07/18 09/07/18 Range/Units 17:10 17:10 17:10 WBC 11.14 H (5.00-10.00) 10^3/uL RBC 5.14 (4.50-6.00) 10^6/uL Hgb 16.3 (13.0-17.0) g/dL Hct 47.3 (40.0-52.0) % MCV 92.0 (82.0-92.0) fL MCH 31.7 H (27.0-31.0) pg MCHC 34.5 (32.0-36.0) g/dL RDW 14.2 (11.5-14.5) % Plt Count 234 (150-400) 10^3/uL MPV 10.9 H (7.4-10.4) fL Immature Gran % (Auto) 1.1 (0.0-5.0) % Neut % (Auto) 79.7 H (50.0-70.0) % Lymph % (Auto) 7.1 L (20.0-40.0) % [place] % (Auto) 9.1 H (2.0-8.0) % Eos % (Auto) 2.5 (1.0-3.0) % Baso % (Auto) 0.5 (0.0-1.0) % Immature Gran # (Auto) 0.12 (0.00-0.50) 10^3/uL Neut # (Auto) 8.88 H (2.50-7.00) 10^3/uL Lymph # (Auto) 0.79 L (1.00-4.00) 10^3/uL [place] # (Auto) 1.01 H (0.10-0.80) 10^3/uL Eos # (Auto) 0.28 (0.10-0.30) 10^3/uL Baso # (Auto) 0.06 (0.00-0.10) 10^3/uL PT 21.7 H (8.9-11.4) SEC INR 2.2 H (0.9-1.1) ABG pH (7.35-7.45) ABG pCO2 (35-45) mmHG ABG pO2 (80-105) mmHG ABG HCO3 (22-26) mmol/L ABG Total CO2 (23-27) mmol/L ABG O2 Saturation (95-98) % ABG Base Excess (-2-3) mmol/L O2 Delivery Device Sodium 144 (136-145) mmol/L Potassium 4.1 (3.3-5.3) mmol/L Chloride 109 (98-115) mmol/L Carbon Dioxide 24.2 (21.0-32.0) mmol/L Anion Gap 14.9 (5-15) mmol/L BUN 19 (6-25) mg/dL Creatinine 1.33 H (0.51-1.17) mg/dL Est Cr Clr Drug Dosing 44.98 mL/min Estimated GFR (MDRD) 52 mL/min Glucose 88 (75 - 99) mg/dL Calcium 8.8 (8.7-10.3) mg/dL Total Bilirubin 0.8 (0.2-1.0) mg/dL AST 27 (15-37) U/L ALT 28 (12-78) U/L Alkaline Phosphatase 81 (46-116) IU/L Total Protein 6.7 (6.4-8.2) g/dL Albumin 3.29 (3.00-4.80) g/dL 09/07/18 Range/Units 17:15 WBC (5.00-10.00) 10^3/uL RBC (4.50-6.00) 10^6/uL Hgb (13.0-17.0) g/dL Hct (40.0-52.0) % MCV (82.0-92.0) fL MCH (27.0-31.0) pg MCHC (32.0-36.0) g/dL RDW (11.5-14.5) % Plt Count (150-400) 10^3/uL MPV (7.4-10.4) fL Immature Gran % (Auto) (0.0-5.0) % Neut % (Auto) (50.0-70.0) % Lymph % (Auto) (20.0-40.0) % [place] % (Auto) (2.0-8.0) % Eos % (Auto) (1.0-3.0) % Baso % (Auto) (0.0-1.0) % Immature Gran # (Auto) (0.00-0.50) 10^3/uL Neut # (Auto) (2.50-7.00) 10^3/uL Lymph # (Auto) (1.00-4.00) 10^3/uL [place] # (Auto) (0.10-0.80) 10^3/uL Eos # (Auto) (0.10-0.30) 10^3/uL Baso # (Auto) (0.00-0.10) 10^3/uL PT (8.9-11.4) SEC INR (0.9-1.1) ABG pH 7.45 (7.35-7.45) ABG pCO2 31 L (35-45) mmHG ABG pO2 57 L (80-105) mmHG ABG HCO3 21.6 L (22-26) mmol/L ABG Total CO2 23 (23-27) mmol/L ABG O2 Saturation 91 L (95-98) % ABG Base Excess -2 (-2-3) mmol/L O2 Delivery Device Room air Sodium (136-145) mmol/L Potassium (3.3-5.3) mmol/L Chloride (98-115) mmol/L Carbon Dioxide (21.0-32.0) mmol/L Anion Gap (5-15) mmol/L BUN (6-25) mg/dL Creatinine (0.51-1.17) mg/dL Est Cr Clr Drug Dosing mL/min Estimated GFR (MDRD) mL/min Glucose (75 - 99) mg/dL Calcium (8.7-10.3) mg/dL Total Bilirubin (0.2-1.0) mg/dL AST (15-37) U/L ALT (12-78) U/L Alkaline Phosphatase (46-116) IU/L Total Protein (6.4-8.2) g/dL Albumin (3.00-4.80) g/dL Med Orders - Current: Current Medications Acetaminophen (Tylenol Extra Strength) 1,000 mg PO Q8H PRN PRN Reason: Pain Last Admin: 09/08/18 06:24 Dose: 1,000 mg Albuterol (Ventolin Hfa) 0 gm INH Q4H PRN PRN Reason: Shortness of Breath Albuterol/Ipratropium (Duoneb 3.0-0.5 Mg/3 Ml) 3 ml NEB Q6HRRT [facility] Last Admin: 09/08/18 11:11 Dose: 3 ml Allopurinol (Zyloprim) 100 mg PO DAILY [facility] Last Admin: 09/08/18 09:30 Dose: 100 mg Cholecalciferol (Vitamin D3) 1,000 units PO Q2D [facility] Last Admin: 09/08/18 09:34 Dose: 1,000 units Clonazepam (Klonopin) 0.5 mg PO BEDTIME [facility] Levothyroxine Sodium (Synthroid) 50 mcg PO BEDTIME [facility] Last Admin: 09/07/18 20:55 Dose: 50 mcg Losartan Potassium (Cozaar) 25 mg PO DAILY [facility] Last Admin: 09/08/18 09:44 Dose: 25 mg Methylprednisolone Sodium Succinate (Solu-Medrol) 40 mg IVPUSH BID [facility]ELA Stop: 09/08/18 22:00 Last Admin: 09/08/18 09:32 Dose: 40 mg Methylprednisolone Sodium Succinate (Solu-Medrol) 40 mg IVPUSH DAILY [facility] Metoprolol Succinate (Toprol Xl) 50 mg PO DAILY [facility] Last Admin: 09/08/18 09:44 Dose: 50 mg Sodium Chloride (Saline Flush) 10 ml FLUSH Q8HR PRN PRN Reason: keep vein open Last Admin: 09/08/18 09:35 Dose: 10 ml Discontinued Medications Clonazepam (Klonopin) 0.5 mg PO BEDTIME [facility] Last Admin: 09/07/18 20:55 Dose: 0.5 mg Methylprednisolone Sodium Succinate (Solu-Medrol) 80 mg IVPUSH ONETIME ONE Stop: 09/07/18 16:29 Last Admin: 09/07/18 17:22 Dose: 80 mg Metoprolol Tartrate (Lopressor) 25 mg PO BID NELA Stop: 09/08/18 04:00 Last Admin: 09/07/18 23:30 Dose: 25 mg - Problem List Review Problem List Initiated/Reviewed/Updated: Yes - My Orders Last 24 Hours: My Active Orders 09/08/18 11:49 RT Incentive Spirometry [RC] ASDIRECTED - Plan Plan:: History summary Mr Hutchinson is a very pleasant 83-year-old gentleman was admitted from the [facility] by Jaqueline gomez [employer] he had came in for follow-up appointment for a recent cough and shortness of breath he had had. On August 30 he was seen in the clinic for shortness of breath and cough in which a chest x-ray did not demonstrate any acute infiltrate or nebs. He did have leukocytosis with a mild elevation of BNP at 180 at that time he was started on a macrolide. 2 days later he had resolved neutrophilia with improvement in his symptoms. He was again evaluated on September 05 for ongoing concerns of cough with shortness of breath again mild neutrophilia however chest x-ray at that time was relatively unchanged. He was given one time dose of prednisone 40 mg along with low dose levofloxacin whether he stated his breathing progressively seem to get worse however no mucus production. Daily his dyspnea on walking with seem to get worse with less stamina. Code status: FULL. HR improved with starting CCB Primary hospital problems Atrial fibrillation, chronic with acute RVR, [id number], in the setting of heart failure history, Lenient rate control stategy with ambulatory exercise goal of 110 Max, take manual pulses, needs sustained improved rate control as likely recent history details of shortness of breath, chest pain, decrease exercise tolerance in the absence of wheezing points to cardiolgy etiology with increased atrial fibrillation RVR burden. Continue with metoprolol succinate however added CCB due to patient's asthma history. Anticoagulation, INR 2.2, Telemetry today while ambulating around floor today to assess AV burden. May need ZIO patch or ILR and cardiology assessment outpatient, change to Cardizem CD HFpEF, Chronic, systolic, ECHO done in 2018, low normal LV sys function at 55%. Mild PAH, fluid status neutral, will monitor BP in hopes of continuing ongoing Max-Inhibition for eccentric remodeling--Luning target of ARB therapy would be 30 mg. Chronic problems Asthma, MINDA PRN, Hypertension, BB and ARB, Hypothyroidism, thyroid replacement therapy CKD stage 3- Recent GFR 53 with a creatinine of 1.33 RLS: Stable Gout, No recent flare ups Insomnia- on Klonopin at HS Disposition, continue inpatient acute stay, ambulate halls today to assess AV burden, changed Cardizem to Cardizem CD, likely could benefit from LABA due to history of asthma and likely COPD component--Will place on LABA/ICS.
[2018-09-08] MEDS: Diltiazem IR 60 MG Tab PO SCH ×2 (15:08→21:36)
[2018-09-08] MEDS ORDERED: Lidocaine 2% 100 MG/5 ML Syringe IVPUSH PRN (18:45)
[2018-09-08] MEDS ORDERED: Nitroglycerin 0.4 MG Tab.SL SL PRN (18:45)
[2018-09-08] MEDS ORDERED: Atropine 0.1 MG/ML 10 ML Syringe IVPUSH PRN (18:45)
[2018-09-08] MEDS ORDERED: EPINEPHrine 1:10,000 1 MG/10 ML Syringe IVPUSH PRN (18:45)
[2018-09-08] MEDS ORDERED: Warfarin 5 MG Tab PO SCH (21:00)
[2018-09-08] MEDS: Levothyroxine 50 MCG Tab PO SCH (21:36)
[2018-09-08] MEDS: ClonazePAM 0.5 MG Tab PO SCH (21:36)
[2018-09-09] MEDS: Diltiazem IR 60 MG Tab PO SCH (05:38)
[2018-09-09] MEDS: Albuterol/Ipratropium 3.0-0.5 MG/3 ML Neb Soln NEB SCH ×4 (05:53→22:08)
[2018-09-09] MEDS ORDERED: predniSONE 20 MG Tab PO SCH (08:00)
[2018-09-09] MEDS: Allopurinol 100 MG Tab PO SCH (08:22)
[2018-09-09] MEDS: Metoprolol Succinate 50 MG Tab.ER PO SCH (08:22)
[2018-09-09] MEDS: Losartan 25 MG Tab PO SCH (08:23)
[2018-09-09] MEDS ORDERED: Metoprolol Succinate 50 MG Tab.ER PO SCH (09:00)
[2018-09-09] MEDS ORDERED: methylPREDNISolone Sodium Succinate 125 MG/2 ML SDV IVPUSH SCH (09:00)
[2018-09-09] MEDS: Fluticasone/Salmeterol 100-50 MCG Inhalation Powder 14/Diskus INH SCH ×2 (11:50→20:40)
[2018-09-09] MEDS: Diltiazem 120 MG Cap.CD PO SCH (13:05)
[2018-09-09] MEDS: Levothyroxine 50 MCG Tab PO SCH (20:41)
[2018-09-09] MEDS: ClonazePAM 0.5 MG Tab PO SCH (20:41)
[2018-09-09] MEDS: Acetaminophen 500 MG Tab PO PRN (20:45)
[2018-09-09] MEDS ORDERED: Warfarin 2.5 MG Tab PO SCH (21:00)
[2018-09-10] MEDS: Albuterol/Ipratropium 3.0-0.5 MG/3 ML Neb Soln NEB SCH ×2 (04:52→11:29)
[2018-09-10 07:00] VITALS: BP 124/86
[2018-09-10] MEDS: Sodium Chloride 0.9% 10 ML Syringe FLUSH PRN ×2 (09:40→11:39)
[2018-09-10] MEDS: Metoprolol Succinate 50 MG Tab.ER PO SCH (09:40)
[2018-09-10] MEDS: Losartan 25 MG Tab PO SCH (09:41)
[2018-09-10] MEDS: Allopurinol 100 MG Tab PO SCH (09:41)
[2018-09-10] MEDS: Diltiazem 120 MG Cap.CD PO SCH (09:41)
[2018-09-10] MEDS: Fluticasone/Salmeterol 100-50 MCG Inhalation Powder 14/Diskus INH SCH (09:42)
[2018-09-10] MEDS: Cholecalciferol (Vitamin D3) 1,000 Unit Tab PO SCH (09:46)
--- NOTE | 2018-09-10 15:18 | PCM.DCSUM1 ---
Discharge Summary - Hospital Course Brief History: This is an 83 year old male who was admitted from the [facility] for concerns of worsening shortness of breath. He was initially seen on for cough and SOB with leukocystosis and negative chest x-ray for which he was given azithromycin. Patient started to feel better. He was seen again on 09/05/18 for same concerns and was found to have leukocytosis and negative chest x-ray. He was given prednisone and levaquin. Patient was admitted inpatient for further lab work-up, monitoring, and treatment of his condition when he presented to the [facility]. WBC 11.1, INR 2.2, CMP unremarkable, pCO2 31, pO2 57, HCO3 21.6, pH 7.45. EKG noted chronic afib with RVR. - Discharge Data Discharge Date: 09/10/18 Discharge Disposition: DC/Tfer W/I Hosp To Swing 61 Condition: Good - Patient Summary/Data Complications: None Consults: None Labs Pending at D/C: None - Discharge Plan *PRESCRIPTION DRUG MONITORING PROGRAM REVIEWED*: No *COPY OF PRESCRIPTION DRUG MONITORING REPORT IN PATIENT EMMA: No Home Medications: Home Meds Acetaminophen [Acetaminophen Extra Strength] 1,000 mg PO Q8H PRN 05/23/14 [ History] Albuterol Sulfate [Albuterol Sulfate HFA] 1 puff INH Q4H PRN 05/23/14 [History] ClonazePAM [KlonoPIN] 0.5 mg PO BEDTIME 05/23/14 [History] Levothyroxine [Synthroid] 50 mcg PO BEDTIME 05/23/14 [History] Losartan [Cozaar] 25 mg PO DAILY 05/23/14 [History] Warfarin [Coumadin] 5 mg PO SUTUWETHSA@209905/23/14 [History] Cholecalciferol (Vitamin D3) [Vitamin D3] 1,000 unit PO Q48H 09/24/17 [History] Mecobalamin [B-12] 1,000 mcg SL Q48H 09/24/17 [History] Metoprolol Succinate 50 mg PO DAILY 09/24/17 [History] Warfarin [Coumadin] 2.5 mg PO MOFR@2100 09/24/17 [History] Allopurinol [Zyloprim] 100 mg PO DAILY 09/07/18 [History] - Discharge Summary/Plan Comment DC Time >30 min.: Yes Discharge Summary/Plan Comment: Date of admission: 09/07/18 Date of discharge/transfer to [facility]: 09/10/18 Admitting diagnosis: Primary: Shortness of breath, Leukocytosis Secondary: COPD, HTN, chronic atrial fibrillation, chronic systolic heart failure, hypothyroidism, HLD, RLS, GERD, CKD stage III, history of gout, history of subarachnoid hemorrhage, insomnia Final diagnosis: Primary: Atrial fibrillation, chronic with acute RVR, RVR resolved; Deconditioning, Dyspnea on exertion, Asthma (mild intermittent)/COPD exacerbation, resolved. Secondary: COPD, HTN, chronic atrial fibrillation, chronic systolic heart failure, hypothyroidism, HLD, RLS, GERD, CKD stage III, history of gout, history of subarachnoid hemorrhage, insomnia Hospital Course: The patient's hospital course went as expected. He was monitored with telemetry and achieved a resting heart rate of 80-90 and low 100s with activity after the addition of Cardizem. He continued on toprol XL. No signs of fluid overload during this stay. WBC did increase on day of transfer to 17.94, however he had received IV solumedrol and oral prednisone during his stay for asthma/COPD component. He remained afebrile. To better control his asthma/COPD he was started on Advair inhaler BID. New medications on transfer: -DuoNebs q6h PRN -Diltiazem CD 120 mg po daily -Advair 100-50 mcg po BID -Nitroglycerin 0.4 mg SL PRN Changes to home medications: None Regular home medications on transfer: -Losartan 25 mg po daily -Clonazepam 0.5 mg po at HS -Toprol XL 50 mg po daily -Levothyroxine 50 mcg po daily -Allopurinol 100 mg po daily -Warfarin 2.5 mg po daily M & F -Warfarin 5 mg po daily the other 5 days of the week - B12 1000 mcg SL q48h -Tylenol 1000 mg po q8h PRN -Vitamin D3 1000 units po q48h -Albuterol 1 puff inh q4h PRN Condition, Treatment, & Final Disposition: The patient is in stable condition at the time of transfer to [facility]/correction care. Patient will work with PT to regain his strength and for help with his dyspnea on exertion. He intends to go back home. See [facility] admit H&P for ROS and PE for 09/10/18. - Patient Data Vitals - Most Recent: Last Vital Signs Temp 98.0 F 09/10/18 06:00 Pulse 97 09/10/18 14:00 Resp 20 09/10/18 06:00 BP 124/86 09/10/18 09:41 Pulse Ox 96 09/10/18 11:32 Weight - Most Recent: 192 lb 1.6 oz I&O - Last 24 hours: Intake & Output 09/10/18 09/10/18 09/10/18 06:59 14:59 22:59 Intake Total 100 Output Total 600 Balance -500 Lab Results - Last 24 hrs: Laboratory Results - last 24 hr 09/10/18 Range/Units 07:25 WBC 17.94 H (5.00-10.00) 10^3/uL RBC 4.79 (4.50-6.00) 10^6/uL Hgb 15.1 (13.0-17.0) g/dL Hct 43.9 (40.0-52.0) % MCV 91.6 (82.0-92.0) fL MCH 31.5 H (27.0-31.0) pg MCHC 34.4 (32.0-36.0) g/dL RDW 14.3 (11.5-14.5) % Plt Count 225 (150-400) 10^3/uL MPV 10.7 H (7.4-10.4) fL Immature Gran % (Auto) 1.9 (0.0-5.0) % Neut % (Auto) 89.4 H (50.0-70.0) % Lymph % (Auto) 4.0 L (20.0-40.0) % [place] % (Auto) 4.6 (2.0-8.0) % Eos % (Auto) 0.0 L (1.0-3.0) % Baso % (Auto) 0.1 (0.0-1.0) % Immature Gran # (Auto) 0.34 (0.00-0.50) 10^3/uL Neut # (Auto) 16.06 H (2.50-7.00) 10^3/uL Lymph # (Auto) 0.71 L (1.00-4.00) 10^3/uL [place] # (Auto) 0.82 H (0.10-0.80) 10^3/uL Eos # (Auto) 0.00 L (0.10-0.30) 10^3/uL Baso # (Auto) 0.01 (0.00-0.10) 10^3/uL Med Orders - Current: Current Medications Discontinued Medications Acetaminophen (Tylenol Extra Strength) 1,000 mg PO Q8H PRN PRN Reason: Pain Last Admin: 09/09/18 20:45 Dose: 1,000 mg Albuterol (Ventolin Hfa) 0 gm INH Q4H PRN PRN Reason: Shortness of Breath Albuterol/Ipratropium (Duoneb 3.0-0.5 Mg/3 Ml) 3 ml NEB Q6HRRT [facility] Last Admin: 09/10/18 11:29 Dose: 3 ml Allopurinol (Zyloprim) 100 mg PO DAILY [facility] Last Admin: 09/10/18 09:41 Dose: 100 mg Atropine Sulfate (Atropine 0.1 Mg/Ml) 0 mg IVPUSH ASDIRECTED PRN PRN Reason: Heart Cholecalciferol (Vitamin D3) 1,000 units PO Q2D [facility] Last Admin: 09/10/18 09:46 Dose: 1,000 units Clonazepam (Klonopin) 0.5 mg PO BEDTIME [facility] Last Admin: 09/07/18 20:55 Dose: 0.5 mg Clonazepam (Klonopin) 0.5 mg PO BEDTIME [facility] Last Admin: 09/09/18 20:41 Dose: 0.5 mg Diltiazem HCl (Cardizem) 60 mg PO Q8HR [facility] Last Admin: 09/09/18 05:38 Dose: 60 mg Diltiazem HCl (Cardizem Cd) 120 mg PO DAILY [facility] Last Admin: 09/10/18 09:41 Dose: 120 mg Epinephrine HCl (Epinephrine 1:10,000) 1 mg IVPUSH ASDIRECTED PRN PRN Reason: Heart Levothyroxine Sodium (Synthroid) 50 mcg PO BEDTIME [facility] Last Admin: 09/09/18 20:41 Dose: 50 mcg Lidocaine HCl (Xylocaine 2%) 0 mg IVPUSH ASDIRECTED PRN PRN Reason: Heart Losartan Potassium (Cozaar) 25 mg PO DAILY [facility] Last Admin: 09/10/18 09:41 Dose: 25 mg Methylprednisolone Sodium Succinate (Solu-Medrol) 80 mg IVPUSH ONETIME ONE Stop: 09/07/18 16:29 Last Admin: 09/07/18 17:22 Dose: 80 mg Methylprednisolone Sodium Succinate (Solu-Medrol) 40 mg IVPUSH BID [facility] Stop: 09/08/18 22:00 Last Admin: 09/08/18 09:32 Dose: 40 mg Methylprednisolone Sodium Succinate (Solu-Medrol) 40 mg IVPUSH DAILY [facility] Metoprolol Succinate (Toprol Xl) 50 mg PO DAILY [facility] Last Admin: 09/10/18 09:40 Dose: 50 mg Metoprolol Succinate (Toprol Xl) 50 mg PO DAILY [facility] Metoprolol Tartrate (Lopressor) 25 mg PO BID [facility] Stop: 09/08/18 04:00 Last Admin: 09/07/18 23:30 Dose: 25 mg Nitroglycerin (Nitrostat) 0.4 mg SL ASDIRECTED PRN PRN Reason: Heart Prednisone (Prednisone) 40 mg PO WITHBREAKFAST [facility] Last Admin: 09/09/18 08:22 Dose: 40 mg Fluticasone/Salmeterol (Advair Diskus 100-50) 1 puff INH BID [facility] Last Admin: 09/10/18 09:42 Dose: 1 puff Sodium Chloride (Saline Flush) 10 ml FLUSH Q8HR PRN PRN Reason: keep vein open Last Admin: 09/10/18 11:39 Dose: 10 ml Warfarin Sodium (Coumadin) 2.5 mg PO MOFR@2100 [facility] Last Admin: 09/09/18 20:41 Dose: 2.5 mg Warfarin Sodium (Coumadin) 5 mg PO SUTUWETHSA@2100 [facility] Last Admin: 09/08/18 21:36 Dose: 5 mg
== END 2018-09-10 13:40 | disposition swing bed (61) | DRG 191 ==
LOC: KA.MS 16:29
PROVIDERS: ADMIT Nurse Practitioner Family; ATTEND Family Medicine
DX: J44.1 Chronic obstructive pulmonary disease with (acute) exacerbation (principal); I13.0 Hypertensive heart and chronic kidney disease with heart failure and stage 1 through stage 4 chronic kidney disease, or unspecified chronic kidney disease; I50.22 Chronic systolic (congestive) heart failure; I48.2 Chronic atrial fibrillation; N18.3 Chronic kidney disease, stage 3 (moderate); E03.9 Hypothyroidism, unspecified; E78.5 Hyperlipidemia, unspecified; G25.81 Restless legs syndrome; K21.9 Gastro-esophageal reflux disease without esophagitis; G47.00 Insomnia, unspecified; J45.20 Mild intermittent asthma, uncomplicated; M10.9 Gout, unspecified; Z79.01 Long term (current) use of anticoagulants; Z79.899 Other long term (current) drug therapy; Z88.8 Allergy status to other drugs, medicaments and biological substances; Z90.49 Acquired absence of other specified parts of digestive tract
CPT/HCPCS: 36415; 36600; 80048; 80053; 82803; 85025; 85610; 87070; 87205; 93005; 94640; A9270-GY; J2930; J7620-GY

== ENCOUNTER 2018-09-10 10:16 | Inpatient (IN) | payer MEDICARE, OTHER ==
[2018-09-10] MEDS ORDERED: Albuterol/Ipratropium 3.0-0.5 MG/3 ML Neb Soln NEB PRN (13:33)
[2018-09-10] MEDS ORDERED: Nitroglycerin 0.4 MG Tab.SL SL PRN (13:33)
[2018-09-10] MEDS ORDERED: Albuterol 8 GM Inhaler INH PRN (13:33)
[2018-09-10] MEDS ORDERED: Acetaminophen 500 MG Tab PO PRN (13:33)
--- NOTE | 2018-09-10 13:39 | PCM.DCSUM1 ---
Discharge Summary - Discharge Data Discharge Date: 09/10/18 Discharge Disposition: Home, Self-Care 01 Condition: Good - Patient Summary/Data Consults: Consultations 09/10/18 13:33 Consult to Physical Therapy [PT Evaluation and Treatment] [CONS] Routine - Discharge Plan Home Medications: Home Meds Acetaminophen [Acetaminophen Extra Strength] 1,000 mg PO Q8H PRN 05/23/14 [ History] Albuterol Sulfate [Albuterol Sulfate HFA] 1 puff INH Q4H PRN 05/23/14 [History] ClonazePAM [KlonoPIN] 0.5 mg PO BEDTIME 05/23/14 [History] Levothyroxine [Synthroid] 50 mcg PO BEDTIME 05/23/14 [History] Losartan [Cozaar] 25 mg PO DAILY 05/23/14 [History] Warfarin [Coumadin] 5 mg PO SUTUWETHSA@209905/23/14 [History] Cholecalciferol (Vitamin D3) [Vitamin D3] 1,000 unit PO Q48H 09/24/17 [History] Mecobalamin [B-12] 1,000 mcg SL Q48H 09/24/17 [History] Metoprolol Succinate 50 mg PO DAILY 09/24/17 [History] Warfarin [Coumadin] 2.5 mg PO MOFR@209909/24/17 [History] Allopurinol [Zyloprim] 100 mg PO DAILY 09/07/18 [History] - Patient Data Med Orders - Current: Current Medications Acetaminophen (Tylenol Extra Strength) 1,000 mg PO Q8H PRN PRN Reason: Pain Albuterol (Ventolin Hfa) 0 gm INH Q4H PRN PRN Reason: Shortness of Breath Albuterol/Ipratropium (Duoneb 3.0-0.5 Mg/3 Ml) 3 ml NEB Q6HRRT PRN PRN Reason: sob/wheezing Allopurinol (Zyloprim) 100 mg PO DAILY [facility] Cholecalciferol (Vitamin D3) 1,000 units PO Q2D [facility] Clonazepam (Klonopin) 0.5 mg PO BEDTIME [facility] Diltiazem HCl (Cardizem Cd) 120 mg PO DAILY [facility] Levothyroxine Sodium (Synthroid) 50 mcg PO BEDTIME [facility] Losartan Potassium (Cozaar) 25 mg PO DAILY [facility] Metoprolol Succinate (Toprol Xl) 50 mg PO DAILY [facility] Nitroglycerin (Nitrostat) 0.4 mg SL ASDIRECTED PRN PRN Reason: Heart Fluticasone/Salmeterol (Advair Diskus 100-50) 1 puff INH BID [facility] Warfarin Sodium (Coumadin) 2.5 mg PO MOFR@2100 [facility] Warfarin Sodium (Coumadin) 5 mg PO SUTUWETHSA@2100 [facility]
--- NOTE | 2018-09-10 15:43 | PCM.HP ---
H&P History of Present Illness - General Date of Service: 09/10/18 Admit Problem/Dx: Admission Diagnosis/Problem Admission Diagnosis/Problem Shortness of breath Source of Information: Patient, Old Records, RN History Limitations: Reports: No Limitations - Related Data Allergies/Adverse Reactions: Allergies Allergy/AdvReac Type Severity Reaction Status Date / Time SANJAY Inhibitors Allergy THROAT Verified 09/07/18 16:20 TICKLES lisinopril Allergy UNKNOWN Verified 09/07/18 16:20 Home Medications: Home Meds Acetaminophen [Acetaminophen Extra Strength] 1,000 mg PO Q8H PRN 05/23/14 [ History] Albuterol Sulfate [Albuterol Sulfate HFA] 1 puff INH Q4H PRN 05/23/14 [History] ClonazePAM [KlonoPIN] 0.5 mg PO BEDTIME 05/23/14 [History] Levothyroxine [Synthroid] 50 mcg PO BEDTIME 05/23/14 [History] Losartan [Cozaar] 25 mg PO DAILY 05/23/14 [History] Warfarin [Coumadin] 5 mg PO SUTUWETHSA@2100 05/23/14 [History] Cholecalciferol (Vitamin D3) [Vitamin D3] 1,000 unit PO Q48H 09/24/17 [History] Mecobalamin [B-12] 1,000 mcg SL Q48H 09/24/17 [History] Metoprolol Succinate 50 mg PO DAILY 09/24/17 [History] Warfarin [Coumadin] 2.5 mg PO MOFR@2100 09/24/17 [History] Allopurinol [Zyloprim] 100 mg PO DAILY 09/07/18 [History] Past Medical History HEENT History: Reports: Cataract Cardiovascular History: Reports: Afib, Heart Failure, Hypertension Respiratory History: Reports: Pneumonia, Recurrent, Sleep Apnea, SOB Gastrointestinal History: Reports: Chronic Diarrhea Other Gastrointestinal History: gluten free d/t IBS Genitourinary History: Reports: Renal Calculus Musculoskeletal History: Reports: Arthritis, Gout Neurological History: Reports: Headaches, Chronic, Head Trauma Other Neuro History: blood clots in the brain, Endocrine/Metabolic History: Reports: Hypothyroidism Hematologic History: Reports: B12 Deficiency Oncologic (Cancer) History: Reports: None Other Dermatologic History: shingles in feb. - Infectious Disease History Infectious Disease History: Reports: Chicken Pox, Shingles - Past Surgical History HEENT Surgical History: Reports: Cataract Surgery Cardiovascular Surgical History: Reports: None Respiratory Surgical History: Reports: Thoracentesis GI Surgical History: Reports: Cholecystectomy, Colonoscopy Male Surgical History: Reports: Circumcision, Renal Calculus Endocrine Surgical History: Reports: Thyroidectomy Musculoskeletal Surgical History: Reports: Shoulder Surgery Social & Family History - Family History HEENT: Reports: None Cardiac: Reports: None Respiratory: Reports: None GI: Reports: None : Reports: Diabetic Nephropathy Musculoskeletal: Reports: Back pain, Chronic Neurological: Reports: None Psychiatric: Reports: None Endocrine/Metabolic: Reports: Diabetes, type II Hematologic: Reports: None Immunologic: Reports: None Dermatologic: Reports: None Oncologic: Reports: None - Tobacco Use Smoking Status *Q: Unknown Ever Smoked - Caffeine Use Caffeine Use: Reports: Soda - Living Situation & Occupation Living situation: Reports: Occupation: Retired H&P Review of Systems - Review of Systems: Review Of Systems: See Below General: Reports: Weakness. Denies: Fever, Chills, Fatigue, Decreased Appetite HEENT: Reports: Glasses. Denies: Headaches Pulmonary: Reports: Cough. Denies: Shortness of Breath, Wheezing, Sputum Cardiovascular: Reports: Dyspnea on Exertion, Edema. Denies: Chest Pain, Lightheadedness Gastrointestinal: Denies: Abdominal Pain, Constipation, Diarrhea, Decreased Appetite, Nausea Genitourinary: Reports: No Symptoms Musculoskeletal: Reports: No Symptoms Skin: Reports: No Symptoms Psychiatric: Reports: No Symptoms Neurological: Denies: Dizziness, Headache Exam - Exam Exam: See Below - Vital Signs Weight: 192 lb - Exam Quality Assessment: DVT Prophylaxis (On warfarin). No: Supplemental Oxygen General: Alert, Oriented, Cooperative, Other (No distress) HEENT: Conjunctiva Clear, Hearing Intact, Mucosa Moist & [place]mark, Glasses Neck: Supple, Trachea Midline Lungs: Clear to Auscultation (Left lung garcia and RUL), Normal Respiratory Effort, Crackles (RLL) Cardiovascular: Regular Rate, Normal S1, Normal S2, Irregular Rhythm. No: Systolic Murmur, Diastolic Murmur GI/Abdominal Exam: Normal Bowel Sounds, Soft, Non-Tender, No Distention Extremities: Other (trace-1+ edema to BLE) Skin: Warm, Dry, Intact Neurological: Normal Speech Neuro Extensive - Mental Status: Alert, Oriented x3, Normal Mood/Affect, Normal Cognition, Memory Intact Psychiatric: Alert, Normal Affect, Normal Mood - Patient Data Lab Results Last 24 hrs: Laboratory Results - last 24 hr 09/10/18 Range/Units 14:10 PT TNP INR 2.3 H (0.9-1.1) Problem List Initiated/Reviewed/Updated: Yes Orders Last 24hrs: Active Orders 24 hr Category Date Time Status Patient Status [ADT] Routine ADT 09/10/18 13:33 Ordered Intake and Output [RC] QSHIFT Care 09/10/18 13:33 Active Oxygen Therapy [RC] PRN Care 09/10/18 13:33 Active RT Aerosol Therapy [RC] ASDIRECTED Care 09/10/18 13:33 Active RT Incentive Spirometry [RC] ASDIRECTED Care 09/10/18 13:33 Active RT Post Treatment Assessment [RC] Click to Edit Care 09/10/18 13:33 Active RT Pre-Treatment Assessment [RC] Click to Edit Care 09/10/18 13:33 Active Up With Assistance [RC] ASDIRECTED Care 09/10/18 13:33 Active VTE/DVT Education [RC] PER UNIT ROUTINE Care 09/10/18 13:33 Active Vital Signs [RC] Q8HR Care 09/10/18 13:33 Active Consult to Physical Therapy [PT Evaluation and Cons 09/10/18 13:33 Active Treatment] [CONS] Routine Heart Healthy Diet [DIET] Diet 09/10/18 Dinner Active Acetaminophen [Tylenol Extra Strength] Med 09/10/18 13:33 Active 1,000 mg PO Q8H PRN Albuterol [Ventolin HFA] Med 09/10/18 13:33 Active 0 gm INH Q4H PRN Albuterol/Ipratropium [DuoNeb 3.0-0.5 MG/3 ML] Med 09/10/18 13:33 Active 3 ml NEB Q6H PRN Allopurinol [Zyloprim] Med 09/11/18 09:00 Active 100 mg PO DAILY Cholecalciferol (Vitamin D3) [Vitamin D3] Med 09/12/18 09:00 Active 1,000 units PO Q2D ClonazePAM [KlonoPIN] Med 09/10/18 21:00 Active 0.5 mg PO BEDTIME Diltiazem [Cardizem CD] Med 09/10/18 14:30 Active 120 mg PO DAILY Fluticasone/Salmeterol [Advair Diskus 100-50] Med 09/10/18 21:00 Active 0 puff INH BID Levothyroxine [Synthroid] Med 09/10/18 21:00 Active 50 mcg PO BEDTIME Losartan [Cozaar] Med 09/11/18 09:00 Active 25 mg PO DAILY Metoprolol Succinate [Toprol XL] Med 09/11/18 09:00 Active 50 mg PO DAILY Nitroglycerin [Nitrostat] Med 09/10/18 13:33 Active 0.4 mg SL ASDIRECTED PRN Warfarin [Coumadin] Med 09/12/18 18:00 Active 2.5 mg PO MoFr@1800 Warfarin [Coumadin] Med 09/10/18 18:00 Active 5 mg PO SuTuWeThSa@1800 Code Status [Resuscitation Status] Routine Resus Stat 09/10/18 13:38 Ordered Medication Orders Acetaminophen (Tylenol Extra Strength) 1,000 mg PO Q8H PRN PRN Reason: Pain Albuterol (Ventolin Hfa) 0 gm INH Q4H PRN PRN Reason: Shortness of Breath Albuterol/Ipratropium (Duoneb 3.0-0.5 Mg/3 Ml) 3 ml NEB Q6H PRN PRN Reason: sob/wheezing Allopurinol (Zyloprim) 100 mg PO DAILY [facility] Cholecalciferol (Vitamin D3) 1,000 units PO Q2D [facility] Clonazepam (Klonopin) 0.5 mg PO BEDTIME [facility] Diltiazem HCl (Cardizem Cd) 120 mg PO DAILY [facility] Levothyroxine Sodium (Synthroid) 50 mcg PO BEDTIME [facility] Losartan Potassium (Cozaar) 25 mg PO DAILY [facility] Metoprolol Succinate (Toprol Xl) 50 mg PO DAILY [facility] Nitroglycerin (Nitrostat) 0.4 mg SL ASDIRECTED PRN PRN Reason: Heart Fluticasone/Salmeterol (Advair Diskus 100-50) 0 puff INH BID NELA Warfarin Sodium (Coumadin) 2.5 mg PO MoFr@1800 NELA Warfarin Sodium (Coumadin) 5 mg PO SuTuWeThSa@1800 [facility] Assessment/Plan Comment:: HPI: This is an 83 year old male who was inpatient for chronic atrial fibrillation with acute RVR and COPD/asthma exacerbation from 09/07-09/10/18. Patient was monitored with telemetry and with the addition of Cardiazem he was able to maintain a resting heart rate of 80-90s and a heart rate of low 100s with activity. His breathing and SOB at rest had improved, however he continued to have dyspnea on exertion. He was transferred to [facility] to work with physical therapy for deconditioning. Primary Assessment/Plan: Deconditioning. Referral to PT placed. Dyspnea on exertion. Chronic atrial fibrillation. Continue Cardiazem CD 120 mg daily and toprol XL 50 mg daily. Continue warfarin. INR 2.2 (09/07/18). Referral to pharmacy for INR monitoring and warfarin dosing. COPD with mild intermittent asthma component. Continue Advair 100-50 mcg BID, albuterol HFA PRN, and DuoNebs PRN. He does not require oxygen and O2 saturation is 93% on room air. Secondary Assessment/Plan: HTN, stable. Continue losartan. Chronic systolic heart failure. No signs of fluid overload. ECHO (2017) EF 55%, low normal systolic function, mild pulmonary artery hypertension, normal left ventricular size, no diastolic dysfunction. Hypothyroidism. TSH 1.24 (December 2017). Continue levothyroxine. TSH in AM. HLD, history. Not on medication. Given age, likely no benefit of 10 year prevention. RLS. Continue clonazepam. Insomnia. GERD, history. CKD stage 3, stable. Discharge creatinine 1.26, GFR 55. History of gout. Continue allopurinol. History of SAH. Overall treatment plan: Patient will work with physical therapy to regain his strength and improve his breathing with activity so he is able to be successful living at home again.
[2018-09-10] MEDS: Diltiazem 120 MG Cap.CD PO SCH (15:45)
[2018-09-10] MEDS: Hydrocortisone 2.5% Crm 30 GM Tube TOP PRN (18:22)
[2018-09-10] MEDS: Warfarin 5 MG Tab PO SCH (18:22)
[2018-09-10] MEDS: ClonazePAM 0.5 MG Tab PO SCH (20:54)
[2018-09-10] MEDS: Levothyroxine 50 MCG Tab PO SCH (20:54)
[2018-09-10] MEDS: Fluticasone/Salmeterol 100-50 MCG Inhalation Powder 14/Diskus INH SCH (20:54)
[2018-09-11] MEDS: Hydrocortisone 2.5% Crm 30 GM Tube TOP PRN (09:23)
[2018-09-11] MEDS: Allopurinol 100 MG Tab PO SCH (09:24)
[2018-09-11] MEDS: Fluticasone/Salmeterol 100-50 MCG Inhalation Powder 14/Diskus INH SCH ×2 (09:24→20:24)
[2018-09-11] MEDS: Cyanocobalamin (Vitamin B12) 500 MCG Tab PO SCH (09:24)
[2018-09-11] MEDS: Losartan 25 MG Tab PO SCH (09:24)
[2018-09-11] MEDS: Metoprolol Succinate 50 MG Tab.ER PO SCH (09:24)
[2018-09-11] MEDS: Diltiazem 120 MG Cap.CD PO SCH (09:24)
[2018-09-11] MEDS: Warfarin 5 MG Tab PO SCH (18:18)
[2018-09-11] MEDS: Levothyroxine 50 MCG Tab PO SCH (20:23)
[2018-09-11] MEDS: ClonazePAM 0.5 MG Tab PO SCH (20:24)
[2018-09-12] MEDS: Metoprolol Succinate 50 MG Tab.ER PO SCH (08:53)
[2018-09-12] MEDS: Allopurinol 100 MG Tab PO SCH (08:55)
[2018-09-12] MEDS: Diltiazem 120 MG Cap.CD PO SCH (08:55)
[2018-09-12] MEDS: Losartan 25 MG Tab PO SCH (08:56)
[2018-09-12] MEDS ORDERED: Cholecalciferol (Vitamin D3) 1,000 Unit Tab PO SCH (09:00)
[2018-09-12] MEDS: Fluticasone/Salmeterol 100-50 MCG Inhalation Powder 14/Diskus INH SCH ×2 (09:14→21:23)
[2018-09-12] MEDS ORDERED: Warfarin 2.5 MG Tab PO SCH (18:00)
[2018-09-12] MEDS: ClonazePAM 0.5 MG Tab PO SCH (21:31)
[2018-09-12] MEDS: Levothyroxine 50 MCG Tab PO SCH (21:32)
[2018-09-13] MEDS: Allopurinol 100 MG Tab PO SCH (08:26)
[2018-09-13] MEDS: Metoprolol Succinate 50 MG Tab.ER PO SCH (08:26)
[2018-09-13] MEDS: Diltiazem 120 MG Cap.CD PO SCH (08:26)
[2018-09-13 08:27] VITALS: BP 104/76
[2018-09-13] MEDS: Losartan 25 MG Tab PO SCH (08:27)
[2018-09-13] MEDS: Cyanocobalamin (Vitamin B12) 500 MCG Tab PO SCH (08:28)
[2018-09-13] MEDS: Fluticasone/Salmeterol 100-50 MCG Inhalation Powder 14/Diskus INH SCH (09:06)
== END 2018-09-13 14:25 | disposition home or self-care (01) | DRG 202 ==
LOC: KA.MS 13:40
PROVIDERS: ADMIT Nurse Practitioner Family; ATTEND Family Medicine
DX: J45.21 Mild intermittent asthma with (acute) exacerbation (principal); I50.22 Chronic systolic (congestive) heart failure; I13.0 Hypertensive heart and chronic kidney disease with heart failure and stage 1 through stage 4 chronic kidney disease, or unspecified chronic kidney disease; I48.2 Chronic atrial fibrillation; J44.9 Chronic obstructive pulmonary disease, unspecified; E03.9 Hypothyroidism, unspecified; M19.91 Primary osteoarthritis, unspecified site; M10.9 Gout, unspecified; E78.5 Hyperlipidemia, unspecified; G25.81 Restless legs syndrome; G47.00 Insomnia, unspecified; K21.9 Gastro-esophageal reflux disease without esophagitis; N18.3 Chronic kidney disease, stage 3 (moderate); G47.30 Sleep apnea, unspecified; K52.9 Noninfective gastroenteritis and colitis, unspecified; G89.29 Other chronic pain; E53.8 Deficiency of other specified B group vitamins; Z79.01 Long term (current) use of anticoagulants; Z90.49 Acquired absence of other specified parts of digestive tract; Z88.8 Allergy status to other drugs, medicaments and biological substances; Z98.49 Cataract extraction status, unspecified eye; Z87.442 Personal history of urinary calculi
CPT/HCPCS: 36415; 36416; 84443; 85025; 85610; 94640; 97110-GP; 97161-GP; A9270-GY

== ENCOUNTER 2021-06-27 10:43 | Emergency (ER) | payer MEDICARE, OTHER ==
[2021-06-27] MEDS ORDERED: Diltiazem 25 MG/5 ML SDV IVPUSH ONE (12:11)
--- NOTE | 2021-06-27 12:17 | EDM.PDOC ---
ED HPI GENERAL MEDICAL PROBLEM - General Chief Complaint: General Stated Complaint: ELEVATED BP AND PULSE Time Seen by Provider: 06/27/21 11:52 Source of Information: Reports: Patient, Family (dtr n law) History Limitations: Reports: No Limitations - History of Present Illness INITIAL COMMENTS - FREE TEXT/NARRATIVE: Patient presents with high blood pressure. Yesterday he was at the chiropractor but couldn't get treatment due to high blood pressure. He went to the [place] [facility] and was given two oral medications that brought the pressure down and he was sent home. This morning it is high again; it is the diastolic pressure that has been most elevated. He took his usual metoprolol and losartan this morning. No other problems or recent injuries. Middle Back Pain Score (Numeric/FACES): 0 - Related Data Allergies Allergy/AdvReac Type Severity Reaction Status Date / Time No Known Drug Allergies Allergy Cannot Verified 06/27/21 11:28 Remember Home Meds: Home Meds Acetaminophen [Acetaminophen Extra Strength] 1,000 mg PO Q8H PRN 05/23/14 [History] ClonazePAM [KlonoPIN] 0.5 mg PO BEDTIME 05/23/14 [History] Levothyroxine [Synthroid] 50 mcg PO BEDTIME 05/23/14 [History] Losartan [Cozaar] 25 mg PO DAILY 05/23/14 [History] Warfarin [Coumadin] 5 mg PO SUTUTHSA@209905/23/14 [History] Cholecalciferol (Vitamin D3) [Vitamin D3] 1,000 unit PO Q48H 09/24/17 [History] Mecobalamin [B-12] 1,000 mcg SL Q48H 09/24/17 [History] Metoprolol Succinate 50 mg PO DAILY 09/24/17 [History] Warfarin [Coumadin] 2.5 mg PO MOWEFR@2100 09/24/17 [History] allopurinoL [Zyloprim] 100 mg PO DAILY 09/07/18 [History] Diclofenac Sodium [Voltaren 1% Gel] 2 gm TOP BID 06/26/21 [History] Nitroglycerin 0.4 mg SL ASDIRECTED PRN 06/26/21 [History] polyethylene glycoL 3350 [MiraLAX] 3 tsp PO DAILY PRN 06/26/21 [History] Past Medical History HEENT History: Reports: Cataract, Hard of Hearing, Impaired Vision Cardiovascular History: Reports: Afib, Heart Failure, Hypertension Respiratory History: Reports: Pneumonia, Recurrent, Sleep Apnea, SOB Gastrointestinal History: Reports: Chronic Diarrhea Other Gastrointestinal History: gluten free d/t IBS Genitourinary History: Reports: Renal Calculus Musculoskeletal History: Reports: Arthritis, Gout Neurological History: Reports: Headaches, Chronic, Head Trauma Other Neuro History: blood clots in the brain, Endocrine/Metabolic History: Reports: Hypothyroidism Hematologic History: Reports: B12 Deficiency Oncologic (Cancer) History: Reports: None Other Dermatologic History: shingles in feb. - Infectious Disease History Infectious Disease History: Reports: Chicken Pox, Shingles - Past Surgical History HEENT Surgical History: Reports: Cataract Surgery Cardiovascular Surgical History: Reports: None Respiratory Surgical History: Reports: Thoracentesis GI Surgical History: Reports: Cholecystectomy, Colonoscopy Male Surgical History: Reports: Circumcision, Renal Calculus Endocrine Surgical History: Reports: Thyroidectomy Musculoskeletal Surgical History: Reports: Shoulder Surgery Social & Family History - Family History HEENT: Reports: None Cardiac: Reports: None Respiratory: Reports: None GI: Reports: None : Reports: Diabetic Nephropathy Musculoskeletal: Reports: Back pain, Chronic Neurological: Reports: None Psychiatric: Reports: None Endocrine/Metabolic: Reports: Diabetes, type II Hematologic: Reports: None Immunologic: Reports: None Dermatologic: Reports: None Oncologic: Reports: None - Tobacco Use Tobacco Use Status *Q: Never Tobacco User - Caffeine Use Caffeine Use: Reports: Soda, Tea - Recreational Drug Use Recreational Drug Use: No - Living Situation & Occupation Living situation: Reports: Occupation: Retired ED ROS GENERAL - Review of Systems Review Of Systems: See Below Constitutional: Denies: Fever, Chills, Malaise, Weakness, Fatigue HEENT: Denies: Ear Pain, Throat Pain, Vision Change Respiratory: Denies: Shortness of Breath, Cough Cardiovascular: Denies: Chest Pain, Lightheadedness, Syncope GI/Abdominal: Reports: Constipation (chronic, moderate). Denies: Abdominal Pain, Diarrhea : Denies: Dysuria, Flank Pain Musculoskeletal: Reports: Back Pain (low, still needs chiropractor). Denies: Neck Pain, Shoulder Pain, Arm Pain Skin: Denies: Cyanosis, Jaundice, Mottled, Pallor, Diaphoresis Neurological: Denies: Confusion, Dizziness, Headache, Seizure, Trouble Speaking Psychiatric: Denies: Agitation, Anxiety, Confusion ED EXAM, GENERAL - Physical Exam Exam: See Below Exam Limited By: No Limitations General Appearance: Alert, WD/WN, No Apparent Distress Eye Exam: Bilateral Eye: EOMI, Normal Inspection, PERRL Ears: Normal External Exam, Hearing Grossly Normal Nose: Normal Inspection, No Blood Throat/Mouth: Normal Inspection, Normal Lips, Normal Voice, No Airway Compromise Head: Atraumatic, Normocephalic Neck: Normal Inspection, Full Range of Motion Respiratory/Chest: No Respiratory Distress, Lungs Clear, Normal Breath Sounds Cardiovascular: Normal Peripheral Pulses, Tachycardia, Irregularly Irregular Peripheral Pulses: 2+: Carotid (L), Carotid (R), Radial (L), Radial (R), Posterior Tibial (L), Posterior Tibial (R) GI/Abdominal: Normal Bowel Sounds, Soft, Non-Tender, No Organomegaly, No Distention Back Exam: Normal Inspection, Full Range of Motion. No: CVA Tenderness (L), CVA Tenderness (R) Extremities: Normal Inspection, Normal Range of Motion Neurological: Alert, Oriented, Normal Cognition, No Motor/Sensory Deficits Psychiatric: Normal Affect, Normal Mood Skin Exam: Warm, Dry, Intact, Normal Color, No Rash Course - Vital Signs Last Recorded V/S: Last Vital Signs Temp 96.8 F L 06/27/21 11:10 Pulse 65 06/27/21 13:18 Resp 18 06/27/21 11:10 BP 125/87 06/27/21 13:18 Pulse Ox 95 06/27/21 13:18 - Orders/Labs/Meds Orders: Active Orders 24 hr Category Date Time Status EKG 12 Lead [EK] Stat Ther 06/27/21 11:26 Ordered EKG 12 Lead [EK] Stat Ther 06/27/21 13:18 Ordered Meds: Medications Discontinued Medications Generic Name Dose Route Start Last Admin Trade Name Freq PRN Reason Stop Dose Admin Diltiazem HCl 20 mg 06/27/21 12:11 06/27/21 12:29 Diltiazem 25 Mg/5 Ml Sdv IVPUSH 06/27/21 12:12 20 mg ONETIME ONE Administration - Re-Assessments/Exams Free Text/Narrative Re-Assessment/Exam: 06/27/21 12:20 EKG shows A Fib with RVR rate of 106; rate on monitor is sometime in 117-122 range. Patient and family aren't aware of any previous A Fib. Will treat with diltiazem now and see if it helps both rate and pressure. Labs were run yesterday in [place] and we are obtaining those reports. 06/27/21 12:26 CBC, CMP, INR, Troponin were all reviewed from yesterday and normal. 06/27/21 12:29 EKGs from 09/07/18 and 10/06/17 were reviewed and showed A Fib with RVR rates of 107 and 120. EKG yesterday in [place] shows A Fib with rate 97. 06/27/21 13:55 Diltiazem successfully lowered both HR and BP. Second EKG shows A Fib with rate of 55. HR plateaued in the 70's. Patient was monitored for about an hour to make sure he was stable. Discharged to home in stable condition after discussing findings and treatment plan. Since he is taking the succinate form of metoprolol, I advised taking a second dose at onset of elevated HR or BP and then take 2 doses each morning until he sees his PCP as long as pressure and/or rate don't drop too low. Departure - Departure Time of Disposition: 13:51 Disposition: Home, Self-Care 01 Condition: Good Clinical Impression: Elevated blood pressure reading with diagnosis of hypertension, Atrial fibrillation with RVR - Discharge Information Referrals: Sneha Lua DO [Primary Care Provider] - Forms: ED Department Discharge Additional Instructions: Continue your regular medications as directed. If your blood pressure or heart rate go high again, take the Metoprolol 50 mg twice daily instead of once. If still not controlled go to ER if clinic not open. Follow up with your PCP for recheck on Wednesday. Sepsis Event Note (ED) - Evaluation Sepsis Screening Result: No Definite Risk - Focused Exam Vital Signs: Vital Signs Temp Pulse Resp BP Pulse Ox 06/27/21 13:18 65 125/87 95 06/27/21 12:50 53 L 121/76 95 06/27/21 12:43 69 126/101 H 96 06/27/21 12:00 110 H 150/118 H 99 06/27/21 11:45 115 H 184/135 H 97 06/27/21 11:21 94 146/112 H 96 06/27/21 11:15 94 146/112 H 96 06/27/21 11:10 96.8 F L 96 18 169/112 H 96 - My Orders Last 24 Hours: My Active Orders 06/27/21 11:26 EKG 12 Lead [EK] Stat 06/27/21 13:18 EKG 12 Lead [EK] Stat - Assessment/Plan Last 24 Hours: My Active Orders 06/27/21 11:26 EKG 12 Lead [EK] Stat 06/27/21 13:18 EKG 12 Lead [EK] Stat
[2021-06-27 13:57] VITALS: BP 123/92; PULSE 70
== END 2021-06-27 14:00 | disposition home or self-care (01) ==
LOC: KA.ED 10:43
DX: I11.0 Hypertensive heart disease with heart failure (principal); I50.9 Heart failure, unspecified; I48.91 Unspecified atrial fibrillation; E03.9 Hypothyroidism, unspecified; Z79.01 Long term (current) use of anticoagulants; Z79.899 Other long term (current) drug therapy
CPT/HCPCS: 93005; 96374; 99283; J3490; 99284

== ENCOUNTER 2022-11-19 12:03 | Emergency (ER) | payer MEDICARE, OTHER ==
[2022-11-19 12:29] VITALS: BP 138/104; PULSE 90
[2022-11-19 12:56] LABS: BASOPHILS ABSOLUTE AUTO 0.06 10^3/uL (0.00-0.10); BASOPHILS PERCENT AUTO 0.5 % (0.0-1.0); EOSINOPHILS ABSOLUTE AUTO 0.06 10^3/uL (0.10-0.30); EOSINOPHILS PERCENT AUTO 0.5 % (1.0-3.0); HEMATOCRIT 48.8 % (40.0-52.0); IMMATURE GRAN ABSOLUTE AUTO 0.09 10^3/uL (0.00-0.50); IMMATURE GRAN PERCENT AUTO 0.7 % (0.0-5.0); LYMPHOCYTES ABSOLUTE AUTO 0.43 10^3/uL (1.00-4.00); LYMPHOCYTES PERCENT AUTO 3.5 % (20.0-40.0); MEAN CORPUSCULAR HEMOGLOBIN 30.6 pg (27.0-31.0); MEAN CORPUSCULAR HGB CONC 32.8 g/dL (32.0-36.0); MEAN CORPUSCULAR VOLUME 93.3 fL (82.0-92.0); MEAN PLATELET VOLUME 10.4 fL (7.4-10.4); MONOCYTES ABSOLUTE AUTO 0.63 10^3/uL (0.10-0.80); MONOCYTES PERCENT AUTO 5.2 % (2.0-8.0); NEUTROPHILS ABSOLUTE AUTO 10.86 10^3/uL (2.50-7.00); NEUTROPHILS PERCENT AUTO 89.6 % (50.0-70.0); PLATELET COUNT,PLT 172 10^3/uL (150-400); RED BLOOD CELL COUNT 5.23 10^6/uL (4.50-6.00); RED CELL DISTRIBUTION WIDTH 14.4 % (11.5-14.5); WHITE BLOOD CELL COUNT,WBC 12.13 10^3/uL (5.00-10.00)
[2022-11-19 13:15] LABS: ALBUMIN 2.86 g/dL (3.40-5.00); ANION GAP 5.8 mmol/L (5-15); BILIRUBIN TOTAL 0.8 mg/dL (0.2-1.0); CALCIUM 8.6 mg/dL (8.7-10.3); CARBON DIOXIDE,CO2 33.8 mmol/L (21.0-32.0); CREATININE 1.24 mg/dL (0.51-1.17); EST CRCL DRUG DOSING (CG) 42.14 mL/min; POTASSIUM,K 3.6 mmol/L (3.5-5.1); PROTEIN TOTAL,TP 5.9 g/dL (6.4-8.2)
[2022-11-19 14:15] LABS: APPEARANCE,URINE CLEAR (CLEAR); BILIRUBIN,URINE NEGATIVE (NEGATIVE); COLOR,URINE YELLOW (YELLOW); EPITHELIAL CELLS,URINE RARE /LPF; GLUCOSE,URINE NEGATIVE (NEGATIVE); KETONES,URINE NEGATIVE (NEGATIVE); LEUKOCYTE ESTERASE,URINE NEGATIVE (NEGATIVE); NITRITE,URINE NEGATIVE (NEGATIVE); OCCULT BLOOD,URINE NEGATIVE (NEGATIVE); PROTEIN,URINE NEGATIVE (NEGATIVE); RBC,URINE 0-5 /HPF (0-5); UROBILINOGEN,URINE 0.2 E.U./dL (0.2-1.0); WBC,URINE 0-5 /HPF (0-5)
[2022-11-19 14:16] LABS: BACTERIA,URINE RARE /HPF (NONE TO FEW)
== END 2022-11-19 14:20 | disposition home or self-care (01) ==
LOC: KA.ED 12:03
DX: R07.9 Chest pain, unspecified (principal); I48.91 Unspecified atrial fibrillation; I11.0 Hypertensive heart disease with heart failure; I50.9 Heart failure, unspecified; M10.9 Gout, unspecified; E03.9 Hypothyroidism, unspecified; Z88.8 Allergy status to other drugs, medicaments and biological substances; Z79.01 Long term (current) use of anticoagulants; Z79.899 Other long term (current) drug therapy
CPT/HCPCS: 36415; 71046; 80053; 81001; 83880; 84484; 85025; 93010; 99284; 99285

== ENCOUNTER 2024-09-05 23:05 | Observation (INO) | payer MEDICARE, OTHER ==
[2024-09-05] MEDS ORDERED: Sodium Chloride 0.9% 10 ML Syringe FLUSH PRN (23:15)
[2024-09-05 23:46] LABS: BASOPHILS ABSOLUTE AUTO 0.03 10^3/uL (0.00-0.10); BASOPHILS PERCENT AUTO 0.3 % (0.0-1.0); EOSINOPHILS ABSOLUTE AUTO 0.04 10^3/uL (0.10-0.30); EOSINOPHILS PERCENT AUTO 0.4 % (1.0-3.0); HEMATOCRIT 46.6 % (40.0-52.0); HEMOGLOBIN 15.5 g/dL (13.0-17.0); IMMATURE GRAN ABSOLUTE AUTO 0.03 10^3/uL (0.00-0.04); IMMATURE GRAN PERCENT AUTO 0.3 % (0.0-0.4); LYMPHOCYTES ABSOLUTE AUTO 0.65 10^3/uL (1.00-4.00); LYMPHOCYTES PERCENT AUTO 5.7 % (20.0-40.0); MEAN CORPUSCULAR HEMOGLOBIN 30.4 pg (27.0-31.0); MEAN CORPUSCULAR HGB CONC 33.3 g/dL (32.0-36.0); MEAN CORPUSCULAR VOLUME 91.4 fL (82.0-92.0); MEAN PLATELET VOLUME 10.6 fL (7.4-10.4); MONOCYTES PERCENT AUTO 8.8 % (2.0-8.0); NEUTROPHILS ABSOLUTE AUTO 9.67 10^3/uL (2.50-7.00); NEUTROPHILS PERCENT AUTO 84.5 % (50.0-70.0); PLATELET COUNT,PLT 167 10^3/uL (150-400); RED CELL DISTRIBUTION WIDTH 15.3 % (11.5-14.5); WHITE BLOOD CELL COUNT,WBC 11.42 10^3/uL (5.00-10.00)
[2024-09-06 00:04] LABS: ALANINE AMINOTRANSFERASE,ALT 43 U/L (14-63); ALBUMIN 3.01 g/dL (3.40-5.00); ALKALINE PHOSPHATASE 82 U/L (46-116); ANION GAP 10.9 mmol/L (5-15); ASPARTATE AMNIOTRANSFERASE,AST 33 U/L (15-37); B-TYPE NATRIURETIC PEPTIDE,BNP 69 pg/mL (0-100); BILIRUBIN TOTAL 0.9 mg/dL (0.2-1.0); BLOOD UREA NITROGEN,BUN 16 mg/dL (7-18); CALCIUM 8.5 mg/dL (8.7-10.3); CARBON DIOXIDE,CO2 29.5 mmol/L (21.0-32.0); CHLORIDE,CL 109 mmol/L (98-107); CREATININE 1.17 mg/dL (0.51-1.17); ESTIMATED GFR 60 mL/min (>=60); GLUCOSE RANDOM 101 mg/dL (70-140); INR 2.3 (0.9-1.1); POTASSIUM,K 4.4 mmol/L (3.5-5.1); PROTEIN TOTAL,TP 6.1 g/dL (6.4-8.2); PROTHROMBIN TIME 22.8 SEC (9.1-12.0); SODIUM,NA 145 mmol/L (136-145)
[2024-09-06] MEDS: Lidocaine/Epineph/Tetracaine 3 ML Syringe TOP ONE (00:10)
[2024-09-06] MEDS: Lidocaine 2% with EPINEPHrine 1:100,000 20 ML MDV INJECT ONE (00:10)
[2024-09-06] MEDS: Metoprolol Tartrate 5 MG/5 ML SDV IVPUSH ONE (02:37)
[2024-09-06] MEDS ORDERED: oxyCODONE 5 MG Tab PO PRN (04:34)
[2024-09-06] MEDS ORDERED: Ondansetron 4 MG/2 ML SDV IV PRN (04:34)
[2024-09-06] MEDS ORDERED: Non-Formulary Medication 1 Each (Cholecalciferol (Vitamin D3) [Vitamin D3] 1,000 UNIT Caps PO SCH (04:45)
[2024-09-06] MEDS ORDERED: MECOBALAMIN 1000 MCG SL SCH (04:45)
[2024-09-06] MEDS ORDERED: ClonazePAM 0.5 MG Tab PO PRN (04:45)
[2024-09-06] MEDS: Pantoprazole 40 MG Tab.CR PO SCH (06:19)
[2024-09-06 07:47] LABS: BASOPHILS ABSOLUTE AUTO 0.05 10^3/uL (0.00-0.10); BASOPHILS PERCENT AUTO 0.4 % (0.0-1.0); EOSINOPHILS ABSOLUTE AUTO 0.07 10^3/uL (0.10-0.30); EOSINOPHILS PERCENT AUTO 0.6 % (1.0-3.0); HEMATOCRIT 45.9 % (40.0-52.0); IMMATURE GRAN ABSOLUTE AUTO 0.02 10^3/uL (0.00-0.04); IMMATURE GRAN PERCENT AUTO 0.2 % (0.0-0.4); LYMPHOCYTES ABSOLUTE AUTO 0.58 10^3/uL (1.00-4.00); LYMPHOCYTES PERCENT AUTO 5.1 % (20.0-40.0); MEAN CORPUSCULAR HEMOGLOBIN 30.2 pg (27.0-31.0); MEAN CORPUSCULAR HGB CONC 32.7 g/dL (32.0-36.0); MEAN CORPUSCULAR VOLUME 92.5 fL (82.0-92.0); MEAN PLATELET VOLUME 10.5 fL (7.4-10.4); MONOCYTES ABSOLUTE AUTO 1.06 10^3/uL (0.10-0.80); MONOCYTES PERCENT AUTO 9.3 % (2.0-8.0); NEUTROPHILS ABSOLUTE AUTO 9.56 10^3/uL (2.50-7.00); NEUTROPHILS PERCENT AUTO 84.4 % (50.0-70.0); PLATELET COUNT,PLT 158 10^3/uL (150-400); RED BLOOD CELL COUNT 4.96 10^6/uL (4.50-6.00); RED CELL DISTRIBUTION WIDTH 15.2 % (11.5-14.5); WHITE BLOOD CELL COUNT,WBC 11.34 10^3/uL (5.00-10.00)
[2024-09-06 08:08] LABS: INR 2.7 (0.9-1.1); PROTHROMBIN TIME 26.1 SEC (9.1-12.0)
[2024-09-06 08:14] LABS: ANION GAP 11.1 mmol/L (5-15); CALCIUM 8.1 mg/dL (8.7-10.3); CARBON DIOXIDE,CO2 31.4 mmol/L (21.0-32.0); CREATININE 1.14 mg/dL (0.51-1.17); EST CRCL DRUG DOSING (CG) 44.17 mL/min; POTASSIUM,K 4.5 mmol/L (3.5-5.1)
[2024-09-06] MEDS: predniSONE 1 MG Tab PO SCH (09:21)
[2024-09-06] MEDS: Furosemide 20 MG Tab PO SCH (09:21)
[2024-09-06] MEDS: Allopurinol 100 MG Tab PO SCH (09:21)
[2024-09-06] MEDS: Potassium Chloride 10 MEQ Tab.ER PO SCH (09:21)
[2024-09-06] MEDS: Acetaminophen 325 MG Tab PO PRN (09:22)
[2024-09-06] MEDS: Polyethylene Glycol 3350 Powder 17 GM Packet PO PRN (10:39)
[2024-09-06] MEDS: Fluticasone NASAL Spray 16 GM Bottle NASBOTH SCH (15:59)
[2024-09-06] MEDS: Docusate Sodium 100 MG Cap PO PRN (15:59)
[2024-09-06] MEDS: Levothyroxine 50 MCG Tab PO SCH (20:30)
[2024-09-07 07:44] LABS: BASOPHILS ABSOLUTE AUTO 0.02 10^3/uL (0.00-0.10); BASOPHILS PERCENT AUTO 0.2 % (0.0-1.0); EOSINOPHILS ABSOLUTE AUTO 0.09 10^3/uL (0.10-0.30); HEMATOCRIT 44.4 % (40.0-52.0); HEMOGLOBIN 14.7 g/dL (13.0-17.0); IMMATURE GRAN ABSOLUTE AUTO 0.02 10^3/uL (0.00-0.04); IMMATURE GRAN PERCENT AUTO 0.2 % (0.0-0.4); LYMPHOCYTES PERCENT AUTO 6.5 % (20.0-40.0); MEAN CORPUSCULAR HEMOGLOBIN 30.8 pg (27.0-31.0); MEAN CORPUSCULAR HGB CONC 33.1 g/dL (32.0-36.0); MEAN CORPUSCULAR VOLUME 92.9 fL (82.0-92.0); MEAN PLATELET VOLUME 11.1 fL (7.4-10.4); MONOCYTES ABSOLUTE AUTO 0.83 10^3/uL (0.10-0.80); NEUTROPHILS ABSOLUTE AUTO 7.68 10^3/uL (2.50-7.00); NEUTROPHILS PERCENT AUTO 83.1 % (50.0-70.0); PLATELET COUNT,PLT 155 10^3/uL (150-400); RED BLOOD CELL COUNT 4.78 10^6/uL (4.50-6.00); RED CELL DISTRIBUTION WIDTH 15.2 % (11.5-14.5); WHITE BLOOD CELL COUNT,WBC 9.24 10^3/uL (5.00-10.00)
[2024-09-07 08:01] LABS: ANION GAP 8.9 mmol/L (5-15); CALCIUM 8.8 mg/dL (8.7-10.3); CARBON DIOXIDE,CO2 32.6 mmol/L (21.0-32.0); CREATININE 1.05 mg/dL (0.51-1.17); EST CRCL DRUG DOSING (CG) 47.95 mL/min; POTASSIUM,K 4.5 mmol/L (3.5-5.1)
[2024-09-07 08:03] LABS: PROTHROMBIN TIME 19.8 SEC (9.1-12.0)
[2024-09-07 14:30] VITALS: BP 113/82; PULSE 71
== END 2024-09-07 12:32 | disposition home or self-care (01) ==
LOC: KA.ED 23:05 → KA.MS 09-06 02:42
PROVIDERS: ADMIT Internal Medicine; ATTEND Internal Medicine
DX: S01.81XA Laceration without foreign body of other part of head, initial encounter (principal); S01.511A Laceration without foreign body of lip, initial encounter; I48.11 Longstanding persistent atrial fibrillation; I11.0 Hypertensive heart disease with heart failure; I50.9 Heart failure, unspecified; E03.9 Hypothyroidism, unspecified; D72.829 Elevated white blood cell count, unspecified; Z88.8 Allergy status to other drugs, medicaments and biological substances; Z79.01 Long term (current) use of anticoagulants; Z79.890 Hormone replacement therapy; Z79.899 Other long term (current) drug therapy; W18.30XA Fall on same level, unspecified, initial encounter
CPT/HCPCS: 12011; 36415; 70450; 70486; 71045; 72125; 80048; 80053; 83880; 84484; 85025; 85610; 93005; 93010; 99284; 99285-25; A9270-GY; J3490; J7512; Q3014

== ENCOUNTER 2025-05-08 10:56 | Inpatient (IN) | payer MEDICARE, OTHER ==
[2025-05-08] MEDS ORDERED: Sodium Chloride 0.9% 10 ML Syringe FLUSH PRN (11:12)
[2025-05-08 11:19] LABS: BASOPHILS ABSOLUTE AUTO 0.04 10^3/uL (0.00-0.10); BASOPHILS PERCENT AUTO 0.2 % (0.0-1.0); EOSINOPHILS ABSOLUTE AUTO 0.16 10^3/uL (0.10-0.30); EOSINOPHILS PERCENT AUTO 0.9 % (1.0-3.0); IMMATURE GRAN ABSOLUTE AUTO 0.04 10^3/uL (0.00-0.04); IMMATURE GRAN PERCENT AUTO 0.2 % (0.0-0.4); LYMPHOCYTES ABSOLUTE AUTO 0.42 10^3/uL (1.00-4.00); LYMPHOCYTES PERCENT AUTO 2.4 % (20.0-40.0); MEAN PLATELET VOLUME 10.1 fL (7.4-10.4); MONOCYTES ABSOLUTE AUTO 1.28 10^3/uL (0.10-0.80); MONOCYTES PERCENT AUTO 7.4 % (2.0-8.0); NEUTROPHILS ABSOLUTE AUTO 15.39 10^3/uL (2.50-7.00); NEUTROPHILS PERCENT AUTO 88.9 % (50.0-70.0); PLATELET COUNT,PLT 190 10^3/uL (150-400); RED BLOOD CELL COUNT 5.47 10^6/uL (4.50-6.00); RED CELL DISTRIBUTION WIDTH 15.3 % (11.5-14.5); WHITE BLOOD CELL COUNT,WBC 17.33 10^3/uL (5.00-10.00)
[2025-05-08 11:37] LABS: ALANINE AMINOTRANSFERASE,ALT 7.0 U/L (14-63); ASPARTATE AMNIOTRANSFERASE,AST 19.0 U/L (15-37); BILIRUBIN TOTAL 1.1 mg/dL (0.2-1.0); BLOOD UREA NITROGEN,BUN 17.0 mg/dL (7-18); CARBON DIOXIDE,CO2 31.0 mmol/L (21.0-32.0); CHLORIDE,CL 107.0 mmol/L (98-107); CREATININE 1.18 mg/dL (0.51-1.17); EST CRCL DRUG DOSING (CG) 41.86 mL/min; GLUCOSE RANDOM 93.0 mg/dL (70-140); POTASSIUM,K 4.2 mmol/L (3.5-5.1); PROTEIN TOTAL,TP 6.4 g/dL (6.4-8.2); SODIUM,NA 146.0 mmol/L (136-145)
[2025-05-08 11:38] LABS: ESTIMATED GFR 59.0 mL/min (>=60)
[2025-05-08 11:48] LABS: B-TYPE NATRIURETIC PEPTIDE,BNP 154.0 pg/mL (0-100)
[2025-05-08 11:56] LABS: INR 3.2 (0.9-1.1)
[2025-05-08 12:26] LABS: INFLUENZA A NAA NEGATIVE (NEGATIVE); INFLUENZA B NAA NEGATIVE (NEGATIVE); RESPIRATORY SYNCYTIAL VIR NAA NEGATIVE (NEGATIVE)
[2025-05-08 12:28] LABS: CORONAVIRUS COVID-19 NAA NEGATIVE (NEGATIVE)
[2025-05-08] MEDS ORDERED: Ondansetron 4 MG Tab.DIS PO PRN (14:54)
[2025-05-08 14:56] LABS: APPEARANCE,URINE CLEAR (CLEAR); GLUCOSE,URINE NEGATIVE (NEGATIVE); OCCULT BLOOD,URINE NEGATIVE (NEGATIVE)
[2025-05-08] MEDS ORDERED: Nitroglycerin 0.4 MG Tab.SL SL PRN (14:57)
[2025-05-08 15:13] LABS: EPITHELIAL CELLS,URINE NOT SEEN /LPF
[2025-05-08] MEDS: Warfarin** 1 MG TABLET PO ONE (20:07)
[2025-05-09 07:51] LABS: INR 3.1 (0.9-1.1)
[2025-05-09] MEDS ORDERED: Phenol 1.4% Oral Spray 177 ML Bottle MUCMEM PRN (09:10)
[2025-05-09] MEDS: Warfarin** 1 MG TABLET PO ONE (20:17)
[2025-05-10 07:14] LABS: INR 2.4 (0.9-1.1)
[2025-05-10 08:53] LABS: BASOPHILS ABSOLUTE AUTO 0.05 10^3/uL (0.00-0.10); BASOPHILS PERCENT AUTO 0.6 % (0.0-1.0); EOSINOPHILS ABSOLUTE AUTO 0.36 10^3/uL (0.10-0.30); EOSINOPHILS PERCENT AUTO 4.2 % (1.0-3.0); IMMATURE GRAN ABSOLUTE AUTO 0.03 10^3/uL (0.00-0.04); IMMATURE GRAN PERCENT AUTO 0.3 % (0.0-0.4); LYMPHOCYTES ABSOLUTE AUTO 0.49 10^3/uL (1.00-4.00); LYMPHOCYTES PERCENT AUTO 5.7 % (20.0-40.0); MEAN PLATELET VOLUME 9.9 fL (7.4-10.4); MONOCYTES ABSOLUTE AUTO 0.64 10^3/uL (0.10-0.80); MONOCYTES PERCENT AUTO 7.4 % (2.0-8.0); NEUTROPHILS ABSOLUTE AUTO 7.09 10^3/uL (2.50-7.00); NEUTROPHILS PERCENT AUTO 81.8 % (50.0-70.0); PLATELET COUNT,PLT 190 10^3/uL (150-400); RED BLOOD CELL COUNT 5.17 10^6/uL (4.50-6.00); RED CELL DISTRIBUTION WIDTH 15.3 % (11.5-14.5); WHITE BLOOD CELL COUNT,WBC 8.66 10^3/uL (5.00-10.00)
[2025-05-10 09:11] LABS: BLOOD UREA NITROGEN,BUN 18.0 mg/dL (7-18); CARBON DIOXIDE,CO2 30.1 mmol/L (21.0-32.0); CHLORIDE,CL 107.0 mmol/L (98-107); CREATININE 1.09 mg/dL (0.51-1.17); EST CRCL DRUG DOSING (CG) 45.32 mL/min; GLUCOSE RANDOM 122.0 mg/dL (70-140); POTASSIUM,K 4.0 mmol/L (3.5-5.1); SODIUM,NA 144.0 mmol/L (136-145)
[2025-05-10 09:13] LABS: ESTIMATED GFR 65.0 mL/min (>=60)
[2025-05-10 15:42] VITALS: BP 105/66; PULSE 61
== END 2025-05-10 15:50 | disposition home or self-care (01) | DRG 194 ==
LOC: KA.ED 10:56 → KA.MS 14:05
PROVIDERS: ADMIT Family Medicine; ATTEND Family Medicine
PROC: 5A0935A Assistance with Respiratory Ventilation, Less than 24 Consecutive Hours, High Flow/Velocity Cannula (ICD-10-PCS; principal; 2025-05-08)
DX: J18.9 Pneumonia, unspecified organism (principal); N28.9 Disorder of kidney and ureter, unspecified; I11.0 Hypertensive heart disease with heart failure; I13.0 Hypertensive heart and chronic kidney disease with heart failure and stage 1 through stage 4 chronic kidney disease, or unspecified chronic kidney disease; I48.91 Unspecified atrial fibrillation; N18.2 Chronic kidney disease, stage 2 (mild); J45.909 Unspecified asthma, uncomplicated; E03.9 Hypothyroidism, unspecified; H91.90 Unspecified hearing loss, unspecified ear; Z79.890 Hormone replacement therapy; H54.7 Unspecified visual loss; I50.9 Heart failure, unspecified; E78.00 Pure hypercholesterolemia, unspecified; K21.9 Gastro-esophageal reflux disease without esophagitis; R09.02 Hypoxemia; M10.9 Gout, unspecified; M19.90 Unspecified osteoarthritis, unspecified site; Z90.49 Acquired absence of other specified parts of digestive tract; Z88.8 Allergy status to other drugs, medicaments and biological substances; Z79.899 Other long term (current) drug therapy; Z79.01 Long term (current) use of anticoagulants; Z79.52 Long term (current) use of systemic steroids; Z98.49 Cataract extraction status, unspecified eye; Z98.890 Other specified postprocedural states; Z85.820 Personal history of malignant melanoma of skin
CPT/HCPCS: 36415; 36416; 71045; 80048; 80053; 81001; 83605; 83880; 84484; 85025; 85610; 87040; 87637; 87651; 93010; 96374; 97110-GP; 97116-GP; 97161-GP; 97165-GO; 97535-GO; 99284; 99285-25; A9270-GY; J0456; J0696; J7050; Q3014